=== PATIENT | male | born 1975 | race Caucasian/White ===

== ENCOUNTER 2017-12-07 11:27 | Inpatient (IN) | payer OTHER ==
--- NOTE | 2017-12-07 11:50 | ER Document Report ---
ED Fall <GEMMA MOREJON - Last Filed: 12/07/17 17:02> - General Mode of Arrival: Medic Information source: Patient TRAVEL OUTSIDE OF THE [place] IN LAST 30 DAYS: No - HPI Occurred: Just prior to arrival <LINDA ABREU - Last Filed: 12/08/17 18:15> - General Chief Complaint: Fall Injury Stated Complaint: FALL/LEFT ARM PAIN Time Seen by Provider: 12/07/17 11:45 Notes: Patient is a 42-year-old male with no significant medical history presents to the emergency department complaining of left upper arm pain secondary to fall. Patient states while he was at work, placing gutters on a ladder, he fell approximately 8-10 ft on his left arm on some stairs. He states the ladder slipped on wet wood from under him. Patient denies any other pain, head trauma or injury or loss of consciousness. EMS placed the patient's left arm in a splint. (LINDA ABREU) - Related data Allergies/Adverse Reactions: Sulfa (Sulfonamide Antibiotics) Allergy (Verified 12/07/17 15:28) Past Medical History - General Information source: Patient - Social History Smoking Status: Never Smoker Cigarette use (# per day): No Chew tobacco use (# tins/day): No Smoking Education Provided: No Frequency of alcohol use: None Family History: Reviewed & Not Pertinent Past Surgical History: Reports: Other - Corrective eye surgery as a child - Immunizations Hx Diphtheria, Pertussis, Tetanus Vaccination: Yes <LINDA ABREU - Last Filed: 12/08/17 18:15> Review of Systems - Review of Systems Constitutional: No symptoms reported EENT: No symptoms reported Cardiovascular: No symptoms reported Respiratory: No symptoms reported Gastrointestinal: No symptoms reported Genitourinary: No symptoms reported Male Genitourinary: No symptoms reported Musculoskeletal: See HPI Skin: No symptoms reported Hematologic/Lymphatic: No symptoms reported Neurological/Psychological: No symptoms reported -: Yes All other systems reviewed and negative <LINDA ABREU - Last Filed: 12/08/17 18:15> Physical Exam - General General appearance: Appears well, Alert In distress: None - HEENT Head: Normocephalic, Atraumatic Eyes: Normal Conjunctiva: Normal Extraocular movements intact: Yes Pupils: PERRL Neck: Normal - Respiratory Respiratory status: No respiratory distress - Cardiovascular Rhythm: Regular Heart sounds: Normal auscultation Murmur: No Friction rub: No Gallop: None auscultated - Abdominal Inspection: Normal Distension: No distension Bowel sounds: Normal Tenderness: Nontender Organomegaly: No organomegaly - Extremities General upper extremity: Nontender - nontender to the left shoulder, left forearm or left eblow. General lower extremity: Normal ROM Arm: Tender, Other - Placed in a splint by EMS, tender to palpation to the left mid humerous. Distal and proximal sensations intact. No lacerations or abrasions. Knee: Abrasion - Right medial knee - Neurological Neuro grossly intact: Yes Cognition: Normal Orientation: AAOx4 Emi Coma Scale Eye Opening: Spontaneous Emi Coma Scale Verbal: Oriented Emi Coma Scale Motor: Obeys Commands Emi Coma Scale Total: 15 Speech: Normal - Psychological Associated symptoms: Normal affect, Normal mood - Skin Skin Temperature: Warm Skin Moisture: Dry Skin Color: Normal <LINDA ABREU - Last Filed: 12/08/17 18:15> - Vital signs Vitals: Pulse Ox 94 12/07/17 11:30 Course - Laboratory Result Diagrams: 12/07/17 11:38 12/07/17 11:38 - Diagnostic Test Radiology reviewed: Image reviewed, Reports reviewed - Oblique fracture with some angulation distal left humerus. Chest x-ray is unremarkable. - EKG Interpretation by [place] EKG shows normal: [place], Intervals, ST-T Waves. abnormal: QRS Complexes - Borderline R-wave progression in the anterior leads Rate: Normal - 88 Rhythm: A.Fib When compared to previous EKG there are: Previous EKG unavailable - Consults Dr. Jimenez Time consulted: 13:00 Consulted provider: will come to ER - Have hospitalist admit and medically clear for surgery tomorrow Claudio Huston Time consulted: 13:20 Consulted provider: will come to ER <GEMMA MOREJON - Last Filed: 12/07/17 17:02> - Laboratory Result Diagrams: 12/08/17 05:35 12/08/17 05:35 <LINDA ABREU - Last Filed: 12/08/17 18:15> - Vital Signs Vital signs: Temp Pulse Resp BP Pulse Ox 97.6 F 72 18 119/71 97 12/08/17 17:45 12/08/17 17:45 12/08/17 17:45 12/08/17 17:45 12/08/17 17:45 - Laboratory Laboratory results interpreted by me: 12/07/17 12/07/17 12/07/17 11:38 11:38 11:38 MCHC 36.5 H D-Dimer Chloride 108 H Creatinine 1.39 H Est GFR (Non-Af Amer) 57 L Total Bilirubin 1.4 H TSH 6.72 H Free T4 12/07/17 12/07/17 11:38 11:38 MCHC D-Dimer 2.15 H Chloride Creatinine Est GFR (Non-Af Amer) Total Bilirubin TSH Free T4 0.73 L Critical Care Note - Critical Care Note Total time excluding time spent on procedures (mins): 35 <GEMMA MOREJON - Last Filed: 12/07/17 17:02> Discharge - Discharge Admitting Provider: Hospitalist Unit Admitted: IMCU <GEMMA MOREJON - Last Filed: 12/07/17 17:02> <LINDA ABREU - Last Filed: 12/08/17 18:15> - Discharge Clinical Impression: New onset atrial fibrillation Humerus distal fracture Qualifiers: Encounter type: initial encounter Fracture type: closed Fracture morphology: other fracture Fracture alignment: displaced Laterality: left Qualified Code(s) : S42.492A - Other displaced fracture of lower end of left humerus, initial encounter for closed fracture Fracture, radius, proximal Qualifiers: Encounter type: initial encounter Fracture type: closed Fracture morphology: unspecified fracture morphology Laterality: left Qualified Code(s): S52.102A - Unspecified fracture of upper end of left radius, initial encounter for closed fracture Condition: Good Disposition: ADMITTED INPATIENT Scribe Attestation: 12/07/17 13:25 I personally performed the services described in the documentation, reviewed and edited the documentation which was dictated to the scribe in my presence, and it accurately records my words and actions. (GEMMA MOREJON) Scribe Documentation - Scribe Written by Scribe:: Augie Stewart, 12/07/2017 12:02 acting as scribe for :: Tabitha <LINDA ABREU - Last Filed: 12/08/17 18:15>
[2017-12-07 12:22] LABS: ABSOLUTE EOSINOPHILS # (AUTO) 0.3 10^3/uL (0.0-0.6); ABSOLUTE LYMPHOCYTES (AUTO) 3.3 10^3/uL (0.5-4.7); ABSOLUTE MONOCYTES (AUTO) 0.5 10^3/uL (0.1-1.4); ABSOLUTE NEUT (AUTO) 4.1 10^3/uL (1.7-8.2); BASOPHILS % (AUTO) 0.4 % (0-2); EOSINOPHILS % (AUTO) 3.3 % (0-6); HEMOGLOBIN 15.8 g/dL (13.5-17.0); LYMPHOCYTES % (AUTO) 40.3 % (13-45); MEAN CORPUSCULAR HEMOGLOBIN 32.2 pg (27.0-33.4); MEAN CORPUSCULAR HGB CONC 36.5 g/dL (32.0-36.0); MEAN CORPUSCULAR VOLUME 88 fl (80-97); MONOCYTES % (AUTO) 5.9 % (3-13); PLATELET COUNT 231 10^3/uL (150-450); RED BLOOD COUNT 4.91 10^6/uL (4.35-5.55); RED CELL DISTRIBUTION WIDTH 13.2 % (11.5-14.0); SEGMENTED NEUTROPHILS % (AUTO) 50.1 % (42-78); TOTAL CELLS COUNTED % (AUTO) 100 %; WHITE BLOOD COUNT 8.1 10^3/uL (4.0-10.5)
[2017-12-07] MEDS ORDERED: FENTANYL CITRATE INJ/PF 100 MCG/2 ML AMPUL IV ONE ×4 (12:24→13:44)
--- NOTE | 2017-12-07 12:33 | RADIOLOGY REPORT (SQ) ---
EXAM DESCRIPTION: HUMERUS LEFT COMPLETED DATE/TIME: 12/07/2017 12:16 pm REASON FOR STUDY: Fell off ladder, humerus pain and deformity COMPARISON: None. NUMBER OF VIEWS: Two views. TECHNIQUE: Two radiographic images were acquired of the left humerus to include elbow and shoulder i n at least one projection. LIMITATIONS: None. FINDINGS: MINERALIZATION: Normal. BONES: An oblique fracture seen the distal 3rd of the humerus, with angulation of the distal portion. SOFT TISSUES: No metallic foreign bodies. OTHER: No other significant finding. IMPRESSION: Oblique fracture distal 3rd of the left humerus. TECHNICAL DOCUMENTATION: JOB ID: [id number] [employer]- All Rights Reserved Reading location - IP/workstation name: [email or web address]
--- NOTE | 2017-12-07 12:34 | RADIOLOGY REPORT (SQ) ---
EXAM DESCRIPTION: CHEST SINGLE VIEW COMPLETED DATE/TIME: 12/07/2017 12:16 pm REASON FOR STUDY: New-onset atrial fibrillation COMPARISON: None. EXAM PARAMETERS: NUMBER OF VIEWS: One view. TECHNIQUE: Single frontal radiographic view of the chest acquired. RADIATION DOSE: NA LIMITATIONS: None. FINDINGS: LUNGS AND PLEURA: No opacities, masses or pneumothorax. No pleural effusion. MEDIASTINUM AND HILAR STRUCTURES: No masses. Contour normal. HEART AND VASCULAR STRUCTURES: Heart normal in size. Normal vasculature. BONES: No acute findings. HARDWARE: None in the chest. OTHER: No other significant finding. IMPRESSION: NO ACUTE RADIOGRAPHIC FINDING IN THE CHEST. TECHNICAL DOCUMENTATION: JOB ID: [id number] [employer]- All Rights Reserved Reading location - IP/workstation name: [email or web address]
[2017-12-07 12:40] LABS: INTERNATIONAL RATION (INR) 0.96; PROTHROMBIN TIME 13.3 SEC (11.4-15.4)
[2017-12-07 12:45] LABS: ALANINE AMINOTRANSFERASE 61 U/L (21-72); ALBUMIN 4.1 g/dL (3.5-5.0); ALKALINE PHOSPHATASE 68 U/L (38-126); ANION GAP 11 (5-19); ASPARTATE AMINO TRANSFERASE 50 U/L (17-59); BILIRUBIN,DIRECT 0.3 mg/dL (0.0-0.4); BILIRUBIN,TOTAL 1.4 mg/dL (0.2-1.3); BLOOD UREA NITROGEN 15 mg/dL (7-20); CALCIUM 9.2 mg/dL (8.4-10.2); CARBON DIOXIDE 25 mmol/L (22-30); CHLORIDE 108 mmol/L (98-107); CREATINE KINASE 86 U/L (55-170); GLUCOSE 103 mg/dL (75-110); TOTAL PROTEIN 6.8 g/dL (6.3-8.2)
[2017-12-07 12:57] LABS: HEMATOCRIT 43.4 % (37.9-51.0)
[2017-12-07] MEDS ORDERED: NORMAL SALINE 1000 ML 1,000 ML IV PRN (13:29)
[2017-12-07] MEDS ORDERED: FENTANYL CITRATE INJ/PF 250 MCG/5 ML AMPULE IV ONE (13:39)
[2017-12-07] MEDS ORDERED: METOCLOPRAMIDE HCL INJ/PF 10 MG/2 ML SDV IV ONE (14:09)
--- NOTE | 2017-12-07 14:31 | RADIOLOGY REPORT (SQ) ---
EXAM DESCRIPTION: ELBOW LEFT AP/LATERAL COMPLETED DATE/TIME: 12/07/2017 2:16 pm REASON FOR STUDY: Preop, fractured distal humerus COMPARISON: None. NUMBER OF VIEWS: Two views. TECHNIQUE: AP, lateral radiographic images acquired of the left elbow. LIMITATIONS: None. FINDINGS: MINERALIZATION: Normal. BONES: Oblique comminuted displaced fracture distal humerus. Non-displaced hairline fracture of the proximal radius is also present. JOINT: No effusion. SOFT TISSUES: No soft tissue swelling. No foreign body. OTHER: No other significant finding. IMPRESSION: 1 Oblique comminuted displaced fracture distal humerus. 2 Non-displaced hairline fracture proximal radius. COMMENT: 1 The results of this examination were discussed with the emergency room provider on 018 at 14:23 hours. TECHNICAL DOCUMENTATION: JOB ID: [id number] [employer]- All Rights Reserved Reading location - IP/workstation name: [email or web address]
--- NOTE | 2017-12-07 15:38 | EKG REPORT ---
SEVERITY:- ABNORMAL ECG - ATRIAL FIBRILLATION, V-RATE 70-113 BORDERLINE R WAVE PROGRESSION, ANTERIOR LEADS : Confirmed by: Melania Edwards MD 07-Dec-2017 15:37:27
--- NOTE | 2017-12-07 15:38 | RADIOLOGY REPORT (SQ) ---
EXAM DESCRIPTION: CTA CHEST COMPLETED DATE/TIME: 12/07/2017 3:21 pm REASON FOR STUDY: New onset atrial fibrillation, elevated d-dimer COMPARISON: Chest x-ray 12/07/2017 TECHNIQUE: CT scan of the chest performed using helical scanning technique with dynamic intravenous contrast injection. Images reviewed with lung, soft tissue and bone windows. Reconstructed coronal and sagittal MPR images reviewed. Additional 3 dimensional post-processing performed to develop Maximal Intensity Projection images ([place] P). All images stored on PACS. All CT scanners at this facility use dose modulation, iterative reconstruction, and/or weight based d osing when appropriate to reduce radiation dose to as low as reasonably achievable (ALARA). [facility]: Dose Right [facility]: CareDose [facility]: Dose Right [facility]: Teradose 4D [facility]: VaxInnate CONTRAST TYPE AND DOSE: contrast/concentration: Isovue 370.00 mg/ml; Total Contrast Delivered: 84.0 ml; Total Saline Delivered: 90.0 ml Contrast bolus optimized for the pulmonary arteries. Not diagnostic for the aorta. RENAL FUNCTION: BUN 15 creatinine 1.39 RADIATION DOSE: CT Rad equipment meets quality standard of care and radiation dose reduction techniq ues were employed. CTDIvol: 34.2 - 49.6 mGy. DLP: 1304 mGy-cm. . LIMITATIONS: None. FINDINGS: LUNGS AND PLEURA: No masses, infiltrates, pneumothorax. No pleural effusions, calcificati ons. AORTA AND GREAT VESSELS: No aneurysm. Contrast bolus not optimized for the aorta. HEART: No pericardial effusion. No significant coronary artery calcifications. PULMONARY ARTERIES: No emboli visualized in the main pulmonary arteries or the segmental branches. HILAR AND MEDIASTINAL STRUCTURES: No identified masses or abnormal nodes. HARDWARE: None in the chest. UPPER ABDOMEN: No significant findings. Limited exam. THYROID AND OTHER SOFT TISSUES: No masses. No adenopathy. BONES: No acute or significant finding. 3D MIPS: Confirm above findings. OTHER: No other significant finding. IMPRESSION: NORMAL CTA OF THE CHEST. NO PULMONARY EMBOLI. COMMENT: Quality ID # [id number]: Final reports with documentation of one or more dose reduction techniques (e.g., Automated exposure control, adjustment of the mA and/or kV according to patient size, use of iterative reconstruction technique) TECHNICAL DOCUMENTATION: JOB ID: [id number] [employer]- All Rights Reserved Reading location - IP/workstation name: [email or web address]
[2017-12-07] MEDS ORDERED: DILTIAZEM HCL/D5W 125 MG/125 ML RTUINJ IV PRN (16:32)
[2017-12-07 16:59] LABS: FREE T3 4.12 pg/mL (2.77-5.27); FREE T4 (FREE THYROXINE) 0.73 ng/dL (0.78-2.19)
[2017-12-07] MEDS ORDERED: DILTIAZEM HCL INJ 25 MG/5 ML VIAL IV ONE (17:00)
[2017-12-07 17:18] LABS: URINE AMPHETAMINES SCREEN NEGATIVE; URINE BARBITURATES SCREEN NEGATIVE; URINE BENZODIAZEPINES SCREEN NEGATIVE; URINE COCAINE SCREEN NEGATIVE; URINE MARIJUANA (THC) SCREEN NEGATIVE; URINE METHADONE SCREEN NEGATIVE; URINE PHENCYCLIDINE SCREEN NEGATIVE
--- NOTE | 2017-12-07 17:39 | PDOC CONSULTATION ---
History of Present Illness Admission Date/PCP: 12/07/17 13:32 Patient complains of: Left arm injury History of Present Illness: JIMBO NICHOLSON is a 42 year old male who was at work and sustained a fall onto his left elbow approximately 8-10 feet. Patient denies head injury or loss of consciousness. Notes pain and swelling since the time of injury has improved with current pain regimen. Was placed in a splint in the emergency room. Pain 4/10. Denies numbness. Denies chest pain or shortness of breath. Past Medical History Psychiatric Medical History: Denies: Depression Past Surgical History Past Surgical History: Reports: Other - Corrective eye surgery as a child Social History Smoking Status: Never Smoker Frequency of Alcohol Use: Rare Hx Recreational Drug Use: No Hx Prescription Drug Abuse: No Family History Family History: Reviewed & Not Pertinent Parental Family History Reviewed: No Children Family History Reviewed: No Sibling(s) Family History Reviewed.: No Medication/Allergy Home Medications: No Home Medications 12/07/17 Allergies/Adverse Reactions: Sulfa (Sulfonamide Antibiotics) Allergy (Verified 12/07/17 15:28) Review of Systems Constitutional: ABSENT: chills, fever(s), headache(s), weight gain, weight loss Eyes: ABSENT: visual disturbances Ears: ABSENT: hearing changes Cardiovascular: ABSENT: chest pain, dyspnea on exertion, edema, orthropnea, palpitations Respiratory: ABSENT: cough, hemoptysis Gastrointestinal: ABSENT: abdominal pain, constipation, diarrhea, hematemesis, hematochezia, nausea, vomiting Genitourinary: ABSENT: dysuria, hematuria Integumentary: ABSENT: rash, wounds Neurological: ABSENT: abnormal gait, abnormal speech, confusion, dizziness, focal weakness, syncope Psychiatric: ABSENT: anxiety, depression, homidical ideation, suicidal ideation Endocrine: ABSENT: cold intolerance, heat intolerance, menstrual abnormalities, polydipsia, polyuria Hematologic/Lymphatic: ABSENT: easy bleeding, easy bruising, lymphadenopathy Physical Exam Vital Signs: Temp Pulse Resp BP Pulse Ox 97 F L 92 16 149/88 H 99 12/07/17 16:04 12/07/17 16:04 12/07/17 16:04 12/07/17 16:04 12/07/17 16:04 Intake & Output 12/06/17 12/07/17 12/08/17 06:59 06:59 06:59 Weight 126.8 kg General appearance: PRESENT: no acute distress, well-developed, well-nourished Head exam: PRESENT: atraumatic, normocephalic Eye exam: PRESENT: conjunctiva pink, EOMI, PERRLA. ABSENT: scleral icterus Ear exam: PRESENT: normal external ear exam Mouth exam: PRESENT: moist, tongue midline Neck exam: PRESENT: full ROM. ABSENT: carotid bruit, JVD, lymphadenopathy, thyromegaly Respiratory exam: PRESENT: unlabored Cardiovascular exam: PRESENT: irregular rhythm. ABSENT: diastolic murmur, rubs , systolic murmur Pulses: PRESENT: normal dorsalis pedis pul, +2 pedal pulses bilateral Vascular exam: PRESENT: normal capillary refill GI/Abdominal exam: PRESENT: normal bowel sounds, soft. ABSENT: distended, guarding, mass, organolmegaly, rebound, tenderness Rectal exam: PRESENT: deferred Musculoskeletal exam: PRESENT: other - Left upper extremity: Deformity noted along the distal humerus tenderness to palpation. No manipulation performed. Patient has weakness with EPL and digital extension. Hypoesthesias dorsally along the hand. Intact sensation sharp versus light touch throughout median ulnar nerve distribution. Patient able to make full composite fist. Compartments soft and compressible no sign of compartment syndrome. Dorsalis pedis pulse 2+. Neurological exam: PRESENT: alert, awake, oriented to person, oriented to place , oriented to time, oriented to situation, CN II-XII grossly intact. ABSENT: motor sensory deficit Psychiatric exam: PRESENT: appropriate affect, normal mood. ABSENT: homicidal ideation, suicidal ideation Skin exam: PRESENT: dry, intact, warm. ABSENT: cyanosis, rash Results Impressions: Chest X-Ray 12/07/17 11:51 IMPRESSION: NO ACUTE RADIOGRAPHIC FINDING IN THE CHEST. Humerus X-Ray 12/07/17 11:51 IMPRESSION: Oblique fracture distal 3rd of the left humerus. Elbow X-Ray 12/07/17 13:18 IMPRESSION: 1 Oblique comminuted displaced fracture distal humerus. 2 Non-displaced hairline fracture proximal radius. Chest/Abdomen CTA 12/07/17 14:27 IMPRESSION: NORMAL CTA OF THE CHEST. NO PULMONARY EMBOLI. Status: Image reviewed by me - I have reviewed patient's radiographs which demonstrate extra-articular comminuted distal third humerus fracture Assessment & Plan - Diagnosis (1) Closed fracture of left distal humerus Qualifiers: Encounter type: initial encounter Fracture alignment: displaced Is this a current diagnosis for this admission?: Yes Plan: Patient's radiographs demonstrate distal third humerus fracture. Patient was placed in a posterior splint given the amount of displacement of patient's age I recommended operative intervention however he currently is in new onset A. fib and requires cardiology clearance if patient is cleared by cardiology plan will be to proceed with operative intervention which includes ORIF left distal humerus. We discussed risk and benefits of the surgery specific risks including neurovascular injury of the radial nerve given the location of patient 's fracture andthe likelihood that the radial nerve is in this vicinity and could also be impinged within the fracture site. Patient understands these risks and benefits of the operative intervention also discussed prognosis, rehabilitation and healing expectations. Once patient is medically cleared will proceed with operative intervention.
[2017-12-07] MEDS: ENOXAPARIN SODIUM INJ 150 MG/1 ML DISP.SYRIN SUBCUT SCH (17:55)
[2017-12-07] MEDS: OXYCODONE-ACETAMINOPHEN 5-325 MG TABLET PO PRN (17:57)
[2017-12-07 18:02] LABS: APPEARANCE,URINE CLEAR; BILIRUBIN,URINE NEGATIVE (NEGATIVE); COLOR,URINE YELLOW; GLUCOSE, URINE NEGATIVE (NEGATIVE); KETONES,URINE NEGATIVE (NEGATIVE); LEUKOCYTE ESTERASE,URINE NEGATIVE (NEGATIVE); NITRITE,URINE NEGATIVE (NEGATIVE); PROTEIN,URINE NEGATIVE (NEGATIVE); URINE SPECIFIC GRAVITY 1.028
--- NOTE | 2017-12-07 19:45 | PDOC CONSULTATION ---
Consultation Consult Date: 12/07/17 Attending physician:: CHELSEA CASTELAN Consult reason:: Atrial fibrillation History of Present Illness Admission Date/PCP: 12/07/17 13:32 Patient complains of: Left arm discomfort after a fall History of Present Illness: JIMBO NICHOLSON is a 42 year old male who was at work and sustained a fall onto his left elbow approximately 8-10 feet. Patient denies head injury or loss of consciousness. Notes pain and swelling since the time of injury has improved with current pain regimen. Was placed in a splint in the emergency room. Pain 4/10. Denies numbness. Denies chest pain or shortness of breath. This history obtained by the orthopedic surgeon was reviewed and confirmed. Patient claims that he has been very healthy. He however denied seeing any physician over the last several years. Patient does donate plasma on a regular basis almost every 2 weeks. He claims that his blood pressure has been normal. During his last plasma donation, the personnel who takes the blood, mentioned that his pulse felt irregular. Patient however ignored that. Patient does have history of loud snoring but denies any problem with sleep. Patient however tends to sleep on his stomach. He denied any history of diabetes, hypertension or any other significant heart problems. He also denied any family history of premature coronary artery disease or sudden cardiac in the immediate family members. Past Medical History Psychiatric Medical History: Denies: Depression Past Surgical History Past Surgical History: Reports: Other - Corrective eye surgery as a child Social History Information Source: Patient Smoking Status: Never Smoker Frequency of Alcohol Use: Rare Hx Recreational Drug Use: No Hx Prescription Drug Abuse: No - Advance Directive Resuscitation Status: Full Code Surrogate healthcare decision maker:: Patient's is the surrogate decision-maker Family History Family History: Reviewed & Not Pertinent Parental Family History Reviewed: Yes Children Family History Reviewed: Yes Sibling(s) Family History Reviewed.: Yes Medication/Allergy Home Medications: No Home Medications 12/07/17 Allergies/Adverse Reactions: Sulfa (Sulfonamide Antibiotics) Allergy (Verified 12/07/17 15:28) Review of Systems Review of Systems: Please see history of present illness and past medical history as wall. Constitutional: No fever or chills reported. Head : No recent chronic headaches, recent head injury. Eyes: No recent eye pain, diplopia, redness, discharge, acute visual changes. Ears: No recent chronic ear pain, acute hearing loss, ear discharge. Oral cavity: No recent ulcerations, bleeding, oral cavity discomfort. Neck: No recent acute neck pain reported. Hematologic: No recent easy bruising or bleeding. Lymphatic: No recent lymph node enlargement reported. Cardiovascular system review: See history of present illness. Respiratory system review: No hemoptysis or blood clots in the lungs reported. Mild Shortness of breath on exertion Gastrointestinal system review: Negative for any recent acute hematemesis, melena. Genitourinary system review: No recent acute or chronic hematuria, flank pain, UTI etc. reported. Skin system review: Negative for any recent abnormal bruising, no rash, no pruritus reported. Neurologic: No prior history of strokes, mini strokes, seizure disorder. Psychologic: No history of major psychosis or major depression reported. Musculoskeletal: Minor aches and pains reported. No acute joint swelling reported. Endocrine: No recent polyuria, polydipsia, recent heat or cold intolerance. Physical Exam Vital Signs: Temp Pulse Resp BP Pulse Ox 97 F L 92 16 149/88 H 99 12/07/17 16:04 12/07/17 16:04 12/07/17 16:04 12/07/17 16:04 12/07/17 16:04 Intake & Output 12/06/17 12/07/17 12/08/17 06:59 06:59 06:59 Intake Total 4 Output Total 750 Balance -746 Weight 126.8 kg Exam: GENERAL: well-nourished and in no acute distress. Alert and oriented x3 HEAD: Atraumatic, normocephalic. EYES: Pupils equal round and reactive to light, extraocular movements intact, sclera anicteric, conjunctiva are normal. ENT: TMs normal, nares patent, oropharynx clear without exudates. Moist mucous membranes. No oral ulcerations or bleeding gums noted NECK: supple without lymphadenopathy. Trachea is central. No cervical or axillary lymphadenopathy noted. Carotids are 2+, JVD WNL LUNGS: Respiration seems nonlabored, no significant accessory muscle action noted. Breath sounds clear to auscultation bilaterally and equal noted. No wheezes rales or rhonchi noted. No significant dullness noted on percussion. CHEST: Palpation of the chest wall shows no significant chest wall tenderness. HEART: [place] [employer], No PSH, 1/6 JUANY aortic area, 1/6 tom systolic murmur mitral area, no rubs, no gallops. ABDOMEN: Soft, no significant tenderness appreciated, normoactive bowel sounds. No guarding, no rebound. No rigidity noted . No masses appreciated. EXTREMITIES: Pedal pulses are 1-2+, no calf tenderness noted. No clubbing or cyanosis. negative pedal edema noted NEUROLOGICAL: Focused neurological exam showed no significant neurologic deficit. Normal speech, no focal weakness appreciated. PSYCH: Normal mood, normal affect. Judgment and insight within normal limits. SKIN: No significant ecchymosis, skin is noted to be warm. MUSCULOSKELETAL EXAM: No significant acute joint swelling noted. Left arm in cast and bandaged. Results Laboratory Results: 12/07/17 16:35 Urine Color YELLOW Urine Appearance CLEAR Urine pH 6.0 Ur Specific [place] 1.028 Urine Protein NEGATIVE Urine Glucose (UA) NEGATIVE Urine Ketones NEGATIVE Urine Blood NEGATIVE Urine Nitrite NEGATIVE Ur Leukocyte Esterase NEGATIVE Urine WBC (Auto) 11 Urine RBC (Auto) 1 EKG Comments: Twelve-lead EKG shows atrial fibrillation with controlled ventricular response, no acute ST-T wave changes are noted. Impressions: Chest X-Ray 12/07/17 11:51 IMPRESSION: NO ACUTE RADIOGRAPHIC FINDING IN THE CHEST. Humerus X-Ray 12/07/17 11:51 IMPRESSION: Oblique fracture distal 3rd of the left humerus. Elbow X-Ray 12/07/17 13:18 IMPRESSION: 1 Oblique comminuted displaced fracture distal humerus. 2 Non-displaced hairline fracture proximal radius. Chest/Abdomen CTA 12/07/17 14:27 IMPRESSION: NORMAL CTA OF THE CHEST. NO PULMONARY EMBOLI. Assessment & Plan - Diagnosis (1) New onset atrial fibrillation Is this a current diagnosis for this admission?: Yes (2) Closed fracture of left distal humerus Qualifiers: Encounter type: initial encounter Fracture alignment: displaced Is this a current diagnosis for this admission?: Yes (3) Obesity Qualifiers: Obesity type: unspecified obesity type Obesity classification: unspecified obesity classification Is this a current diagnosis for this admission?: Yes (4) Sleep disorder breathing Is this a current diagnosis for this admission?: Yes (5) Preoperative cardiovascular examination Is this a current diagnosis for this admission?: Yes - Notes Notes: New onset atrial fibrillation: Patient was noted to have irregular heartbeat at his last plasma donation. Exact onset is not clear. Patient chads score however is low therefore chronic anticoagulation not indicated today but will obtain a 2D echo tomorrow morning. So far her EKGs did not show any acute ST-T wave changes. Closed fracture of left distal humerus: Patient for corrective surgery tomorrow. I believe he will be able to tolerate surgery. Sleep disordered breathing: Patient has history of loud snoring. Since he also has obesity and now atrial fibrillation, there is high probability he may have this. Patient was encouraged to be tested for this condition. Obesity: Patient has been encouraged in gradual weight loss. Discussed association of obesity with sleep apnea syndrome. Also obesity is linked to atrial fibrillation. Preoperative cardiovascular examination: My feeling is that she should be able to tolerate the forthcoming orthopedic surgery. Therefore he is cleared. Have placed patient on metoprolol succinate 25 mg p.o. twice daily. Have also asked nurses not to give him morning dose of Lovenox. I believe he could be taken to surgery tomorrow after the echocardiogram has been performed. - Time Time Spent: 30 to 50 Minutes - CODE STATUS was discussed, patient remains full code. Surrogate decision-maker patient's . Multiple medical problems were addressed. More than 50% of the time spent coordinating care, discussing management plans with involved caregivers. Management plans discussed with involved personnels. Medical decision making was of moderate to high complexity , patient's has multiple comorbidities. Medications reviewed and adjusted accordingly: Yes
--- NOTE | 2017-12-07 22:16 | EKG REPORT ---
SEVERITY:- ABNORMAL ECG - ATRIAL FIBRILLATION, V-RATE 89-152 BORDERLINE R WAVE PROGRESSION, ANTERIOR LEADS BORDERLINE T ABNORMALITIES, INFERIOR LEADS BORDERLINE PROLONGED QT INTERVAL : Confirmed by: José Miguel Bosch 07-Dec-2017 22:15:04
[2017-12-07] MEDS ORDERED: METOPROLOL SUCCINATE 25 MG TAB.SR.24H PO ONE (22:30)
[2017-12-07] MEDS ORDERED: DEXTROSE 40% GEL 15 GM TUBE PO PRN ×2 (22:39)
[2017-12-07] MEDS ORDERED: DEXTROSE 50%-WATER 25 GM/50 ML DISP.SYRIN IV PRN ×2 (22:39)
[2017-12-07] MEDS ORDERED: GLUCAGON,HUMAN RECOMB 1 MG INJ SUBCUT PRN (22:39)
[2017-12-08] MEDS: OXYCODONE-ACETAMINOPHEN 5-325 MG TABLET PO PRN ×2 (00:48→10:05)
--- NOTE | 2017-12-08 03:55 | HISTORY AND PHYSICAL E ---
History and Physical NAME: JIMBO NICHOLSON : 1975 AGE: 42Y ADMITTED: 12/07/2017 ROOM: 331 CODE STATUS: Full code. PRIMARY CARE PROVIDER: Not established. CHIEF COMPLAINT: Fall. HISTORY OF PRESENT ILLNESS: The patient is a 42-year-old male with a past medical history of obesity and at one time hypothyroidism. The patient presented to the Emergency Department after sustaining a fall. According to history, the patient was placing gutters when he fell approximately 8-10 feet on his left arm on some stairs. The patient said that the ladder that he was on slipped on wet wood out from under him. The patient denied any pain. No head trauma. No loss of consciousness. EMS placed the patient's left arm in a splint and brought him to the Emergency Department for evaluation. Upon presentation to the Emergency Department, the patient was seen and evaluated by ER providers and was referred to Dr. Jimenez with orthopedics. The patient was slated to go to the OR; however, the patient was noted to be in atrial fibrillation, which was a completely new finding for this patient with no known risk factors. The patient denied any heart palpitations. No flutters. The patient does not smoke nor has the patient had any chest pain or shortness of breath. Upon my evaluation of the patient, he denies any symptoms as such. Denied any loss of consciousness, just simply slipped and fell. The patient's pain is reasonably controlled at this point. I did obtain a D-dimer and findings were elevated at 2.5, and stat CTA of the chest was negative for embolic etiology. The patient remained fairly rate controlled; however, with movement the patient's heart rate did become uncontrolled in the 130s to 140s. The patient was given a dose of IV Cardizem and his rate did improve to the 80s. The patient does have a good amount of blood pressure to work with and will be admitted to [facility]. PAST MEDICAL HISTORY: Remarkable for: 1. Obesity. 2. Previous diagnosis of hypothyroidism, but has never taken medications. PAST SURGICAL HISTORY: Does include corrective eye surgery as a child. ALLERGIES: Include SULFA. MEDICATIONS: None. PAST SOCIAL HISTORY: The patient is retired from the [employer]. 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 The patient resides with his girlfriend, Milli, who can be reached at [phone]. The patient denies any history of tobacco use ever. No history of alcohol or illicit drug use. FAMILY MEDICAL HISTORY: The patient's father is alive with known coronary artery disease and AFib. Onset was in his 60s though. The patient's mother is alive, who has had an unknown type of stroke in the past as well as an VT. The patient does have a sister who has migraines. The patient does have 2 children, both of which are healthy. REVIEW OF SYSTEMS: CONSTITUTIONAL: The patient denies any fevers, chills, dizziness, or weakness. No loss of consciousness. SKIN: The patient denies any diaphoresis, rashes, bruising, itching. HEENT: The patient denies any vision changes, hearing loss. No nasal drainage, sore throat. CARDIOVASCULAR: Denies any chest pain, heart palpitations, or peripheral edema. CHEST: The patient denies any shortness of breath. No cough, sputum production, or hemoptysis. GENITOURINARY: Denies any hematuria, pyuria, or dysuria. MUSCULOSKELETAL: Denies any chronic joint pains, but now has acute left arm pain due to fracture. ABDOMEN: Denies any nausea, vomiting, diarrhea, bloody hematemesis, constipation, melena. No hematochezia. NEUROLOGICAL: No seizures, tremors, loss of consciousness. HEMATOLOGICAL: Denies any irma bleeding, easy bruising. ENDOCRINE: Denies any recent weight changes. PSYCHIATRIC: No suicidal or homicidal ideation. The rest of the review of the other organ systems is negative. PHYSICAL EXAMINATION: GENERAL: The patient is a well-developed, obese, 42-year-old male who is awake, alert. He is oriented to person, place, time, and situation. He is verbal, conversational, does not appear to be in any acute distress. VITAL SIGNS: As follows: Temperature is 97.0, pulse 92, respirations 16, blood pressure is 149/88, oxygen saturation is 99% on room air. SKIN: Warm and dry. No rashes. Not diaphoretic. HEENT: Pupils equal, round, and reactive to light and accommodation. Conjunctiva is pink. Sclera is anicteric. No mouth lesions. Tongue is midline. NECK: Supple. No JVD. No palpable lymphadenopathy or thyromegaly. CARDIOVASCULAR: Heart is irregularly irregular. No rub. CHEST: Clear, symmetrical, unlabored. ABDOMEN: Soft, nontender, nondistended. Bowel sounds are present. BACK: No CVA tenderness, sacral edema. EXTREMITIES: No clubbing, cyanosis, edema, or peripheral signs of embolization. Pedal pulses +1 noted bilaterally. The patient's left arm is splinted from shoulder to fingers. PSYCHIATRIC: Denies suicidal/homicidal ideation. DIAGNOSTICS: Lab values are as follows: Hematology obtained on 12/07/2017: WBCs are 8.1, hemoglobin 15.8, hematocrit 43.4, platelet count is 231,000. Coagulation obtained on 12/07/2017: PT is 13.3, INR is 0.96. D-dimer is 2.15. Chemistry obtained on 12/07/2017: Sodium is 144, potassium 4.0, chloride is 108, carbon dioxide 25, BUN 15, creatinine is 1.39, glucose 103, calcium is 9.2, bilirubin is 1.4, AST 50, ALT is 51, alk phos 58, CK 80, protein is 6.8, albumin 4.1. TSH is 6.72. IMPRESSION AND PLAN: 1. Atrial fibrillation with rapid ventricular response. Uncertain of the exact etiology of this. The patient is completely asymptomatic. Given this, I do have quite concern. The patient did not convert with the dose of Cardizem, but will add drip to start if the patient's heart rate sustains greater than 110. Additionally, will fully anticoagulate the patient with Lovenox for now. Consult Cardiology. Will additionally add T3, T4, and supplement thyroid if needed. 2. Acute kidney injury. The patient's creatinine is slightly elevated at 1.39. Have given the patient a liter of fluid, especially since he has had a CTA now. Will repeat chemistries in the a.m. and follow. 3. Hypertension. The patient denies any history of hypertension and this very well may be a pain response. Will leave some blood pressure to work with given the patient's AFib, but try to keep systolic less than 170. 4. Closed fracture of the left distal humerus. Management as per Orthopedics. Surgery will be deferred at this time given the patient's atrial fibrillation. DISPOSITION: The patient is a full code. Pending patient's symptomatology and diagnostic findings, will reevaluate in the a.m. We will admit the patient to inpatient IMCU. The patient's expected length of stay should surpass 2 midnights. TIME SPENT: Time spent on this admission including assessment, plan, physical examination, patient education, review of records, and family meeting is 50 minutes. DICTATING PHYSICIAN: CHELSEA CASTELAN NP [id number] PHY#: [id number] ID: [id number] JOB#: [id number] ACCT: [id number] cc:CHELSEA CASTELAN NP >
[2017-12-08 06:12] LABS: HEMATOCRIT 38.8 % (37.9-51.0); HEMOGLOBIN 14.2 g/dL (13.5-17.0); MEAN CORPUSCULAR HEMOGLOBIN 32.4 pg (27.0-33.4); MEAN CORPUSCULAR HGB CONC 36.6 g/dL (32.0-36.0); MEAN CORPUSCULAR VOLUME 88 fl (80-97); PLATELET COUNT 213 10^3/uL (150-450); RED BLOOD COUNT 4.39 10^6/uL (4.35-5.55); RED CELL DISTRIBUTION WIDTH 13.4 % (11.5-14.0); WHITE BLOOD COUNT 9.2 10^3/uL (4.0-10.5)
[2017-12-08 06:39] LABS: ANION GAP 11 (5-19); BLOOD UREA NITROGEN 18 mg/dL (7-20); CALCIUM 8.7 mg/dL (8.4-10.2); CARBON DIOXIDE 26 mmol/L (22-30); CHLORIDE 107 mmol/L (98-107); GLUCOSE 105 mg/dL (75-110); POTASSIUM 4.1 mmol/L (3.6-5.0); SODIUM 143.7 mmol/L (137-145)
[2017-12-08] MEDS: KETOROLAC TROMETHAMINE INJ/PF 30 MG/1 ML SDV IV PRN (07:26)
--- NOTE | 2017-12-08 08:41 | EKG REPORT ---
SEVERITY:- ABNORMAL ECG - ATRIAL FIBRILLATION, V-RATE 68-82 : Confirmed by: José Miguel Bosch 08-Dec-2017 08:41:26
[2017-12-08] MEDS: METOPROLOL SUCCINATE 25 MG TAB.SR.24H PO SCH ×2 (10:05→21:12)
[2017-12-08] MEDS ORDERED: CEFAZOLIN INJ 1 GM VIAL ONE (11:39)
--- NOTE | 2017-12-08 11:46 | PDOC PROGRESS REPORT ---
Subjective Progress Note for:: 12/08/17 Subjective:: Patient seems to be doing better. Pt is denying any chest arm or neck discomfort. Patient denying any PND, orthopnea. Patient denied any sustained palpitations, dizziness, syncope, near syncope. Patient denying any fever chills. Patient denying any other significant discomfort. Patient is maintaining atrial fibrillation. Heart rate is well controlled Review of systems: Rest review of systems negative. Medications: Medications have been reviewed. Reason For Visit: AFIB,HUMEROUS FX Physical Exam Vital Signs: Temp Pulse Resp BP Pulse Ox 98.2 F 83 19 126/74 H 98 12/08/17 03:10 12/08/17 06:55 12/08/17 03:10 12/08/17 03:10 12/08/17 03:10 Intake & Output 12/07/17 12/08/17 12/09/17 06:59 06:59 06:59 Intake Total 804 Output Total 1500 Balance -696 Weight 127.4 kg Exam: GENERAL: well-nourished and in no acute distress. Alert and oriented x3 HEAD: Atraumatic, normocephalic. EYES: Pupils equal round and reactive to light, extraocular movements intact, sclera anicteric, conjunctiva are normal. ENT: TMs normal, nares patent, oropharynx clear without exudates. Moist mucous membranes. No oral ulcerations or bleeding gums noted NECK: supple without lymphadenopathy. Trachea is central. No cervical or axillary lymphadenopathy noted. Carotids are 2+, JVD WNL LUNGS: Respiration seems nonlabored, no significant accessory muscle action noted. Breath sounds clear to auscultation bilaterally and equal noted. No wheezes rales or rhonchi noted. No significant dullness noted on percussion. CHEST: Palpation of the chest wall shows no significant chest wall tenderness. HEART: [place] [employer], No PSH, 1/6 JUANY aortic area, 1/6 tom systolic murmur mitral area, no rubs, no gallops. ABDOMEN: Soft, no significant tenderness appreciated, normoactive bowel sounds. No guarding, no rebound. No rigidity noted . No masses appreciated. EXTREMITIES: Pedal pulses are 1-2+, no calf tenderness noted. No clubbing or cyanosis. negative pedal edema noted NEUROLOGICAL: Focused neurological exam showed no significant neurologic deficit. Normal speech, no focal weakness appreciated. PSYCH: Normal mood, normal affect. Judgment and insight within normal limits. SKIN: No significant ecchymosis, skin is noted to be warm. MUSCULOSKELETAL EXAM: No significant acute joint swelling noted. Left arm noted in cast. Patient has distal humerus fracture Results Laboratory Results: 12/08/17 05:35 12/08/17 05:35 12/07/17 12/08/17 12/08/17 16:35 05:35 05:35 WBC 9.2 RBC 4.39 Hgb 14.2 Hct 38.8 MCV 88 MCH 32.4 MCHC 36.6 H RDW 13.4 Plt Count 213 Sodium 143.7 Potassium 4.1 Chloride 107 Carbon Dioxide 26 Anion Gap 11 BUN 18 Creatinine 1.21 Est GFR ( Amer) > 60 Est GFR (Non-Af Amer) > 60 Glucose 105 Calcium 8.7 Magnesium 2.1 Urine Color YELLOW Urine Appearance CLEAR Urine pH 6.0 Ur Specific [place] 1.028 Urine Protein NEGATIVE Urine Glucose (UA) NEGATIVE Urine Ketones NEGATIVE Urine Blood NEGATIVE Urine Nitrite NEGATIVE Ur Leukocyte Esterase NEGATIVE Urine WBC (Auto) 11 Urine RBC (Auto) 1 EKG Comments: Atrial fibrillation with controlled ventricular response. No acute ST-T wave changes are noted. Impressions: Chest X-Ray 12/07/17 11:51 IMPRESSION: NO ACUTE RADIOGRAPHIC FINDING IN THE CHEST. Humerus X-Ray 12/07/17 11:51 IMPRESSION: Oblique fracture distal 3rd of the left humerus. Elbow X-Ray 12/07/17 13:18 IMPRESSION: 1 Oblique comminuted displaced fracture distal humerus. 2 Non-displaced hairline fracture proximal radius. Chest/Abdomen CTA 12/07/17 14:27 IMPRESSION: NORMAL CTA OF THE CHEST. NO PULMONARY EMBOLI. Assessment & Plan - Diagnosis (1) New onset atrial fibrillation Is this a current diagnosis for this admission?: Yes (2) Closed fracture of left distal humerus Qualifiers: Encounter type: initial encounter Fracture alignment: displaced Is this a current diagnosis for this admission?: Yes (3) Obesity Qualifiers: Obesity type: unspecified obesity type Obesity classification: unspecified obesity classification Is this a current diagnosis for this admission?: Yes (4) Sleep disorder breathing Is this a current diagnosis for this admission?: Yes (5) Preoperative cardiovascular examination Is this a current diagnosis for this admission?: Yes - Notes Notes: Atrial fibrillation: 2D echo shows normal LVEF. No significant stenotic or regurgitant lesions noted. Patient cleared for surgery. Once he recovered from this acute problem, will recommend EP consultation as an outpatient for ablation/antiarrhythmic therapy/cardioversion. At this point do not feel he needs chronic anticoagulation because of [id number] being 0. And risk benefits do not favor chronic anticoagulation. Fracture left distal humerus: Patient being managed by orthopedics. Sleep disordered breathing: Patient will benefit from a sleep study which can be arranged as an outpatient through my office. Obesity: Patient has been encouraged in weight loss. Preop cardiovascular examination: Patient cleared for surgery from cardiac standpoint. Recommend DVT prophylaxis, good pain control, pulmonary toilet etc. - Time Time with patient: 15-25 minutes - CODE STATUS was discussed, patient remains full code. Surrogate decision-maker unchanged. Multiple medical problems were addressed. More than 50% of the time spent coordinating care, discussing management plans with involved caregivers. Management plans discussed with involved personnels. Medical decision making was of moderate to high complexity , patient's has multiple comorbidities. Medications reviewed and adjusted accordingly: Yes
--- NOTE | 2017-12-08 12:33 | XCELERA REPORT ---
[address] [address] Transthoracic Echocardiogram Report Name: JIMBO NICHOLSON Age: 42 yrs Gender: Male : 1975 Patient Status: Inpatient Patient Location: [address] [place] [address] Study Date: 12/08/2017 10:42 AM Procedure: A complete two-dimensional transthoracic echocardiogram was performed (2D, M-mode, spectral and color flow Doppler). The study was technically adequate with some images being suboptimal in quality. Reason For Study: Preop, atrial fibrillation Ordering Physician: JOSÉ MIGUEL OSORIO Performed By: Katiuska Wills Interpretation Summary Left ventricular systolic function is low normal. There is borderline concentric left ventricular hypertrophy. The left ventricle is grossly normal size. LV diastolic function could not be adequately assessed. Wall motion cannot be accurately commented on, but no definite regional wall motion abnormalities noted. The right ventricular systolic function is normal. Borderline right ventricular enlargement. The right atrium is normal in size Borderline left atrial enlargement. There is no mitral valve stenosis. There is a trace amount of mitral regurgitation No aortic regurgitation is present. There is no aortic valve stenosis There is a trace or physiologic amount of tricuspid regurgitation Tricuspid regurgitation jet envelope not well defined to measure RV systolic pressure accurately. The aortic root is not well visualized but is probably normal size. The inferior vena cava was not visualized There is no pericardial effusion. MMode/2D Measurements & Calculations RVDd: 4.0 cm LVIDd: 5.2 cm FS: 31.6 % LVOT diam: 2.2 cm IVSd: 1.1 cm LVIDs: 3.5 cm EDV(Teich): 127.7 ml LVOT area: 3.8 cm2 LVPWd: 1.2 cm ESV(Teich): 52.1 ml EF(Teich): 59.2 % Doppler Measurements & Calculations MV E max jarod: MV dec slope: Ao V2 max: LV V1 max P.2 cm/sec 370.7 cm/sec2 80.4 cm/sec 1.7 mmHg MV A max jarod: MV dec time: Ao max PG: LV V1 max: 23.6 cm/sec 0.21 sec 2.6 mmHg 64.5 cm/sec MV E/A: 3.4 DARIAN(V,D): 3.0 cm2 PA V2 max: PI max jarod: TR max jarod: 72.2 cm/sec 191.4 cm/sec 234.0 cm/sec PA max PG: PI max P.7 mmHgTR max P.1 mmHg PI dec slope: 21.9 mmHg 106.6 cm/sec2 Left Ventricle The left ventricle is grossly normal size. There is borderline concentric left ventricular hypertrophy. Left ventricular systolic function is low normal. LV diastolic function could not be adequately assessed. Wall motion cannot be accurately commented on, but no definite regional wall motion abnormalities noted. Right Ventricle Borderline right ventricular enlargement. There is normal right ventricular wall thickness. The right ventricular systolic function is normal. Atria The right atrium is normal in size. Borderline left atrial enlargement. Interarterial septum not well visualized and not well dopplered. Cannot comment on ASD/PFO presence. Mitral Valve The mitral valve is grossly normal. There is no mitral valve stenosis. There is a trace amount of mitral regurgitation. Aortic Valve The aortic valve is grossly normal. There is no aortic valve stenosis. No aortic regurgitation is present. Tricuspid Valve The tricuspid valve is not well visualized, but is grossly normal. There is no tricuspid stenosis. There is a trace or physiologic amount of tricuspid regurgitation. Tricuspid regurgitation jet envelope not well defined to measure RV systolic pressure accurately. Pulmonic Valve The pulmonic valve is not well visualized. Great Vessels The aortic root is not well visualized but is probably normal size. The inferior vena cava was not visualized. Effusions There is no pericardial effusion. : JOSÉ MIGUEL OSORIO > José Miguel Osorio
[2017-12-08] MEDS ORDERED: FENTANYL CITRATE INJ/PF 100 MCG/2 ML AMPUL ONE (13:02)
[2017-12-08] MEDS ORDERED: KETOROLAC TROMETHAMINE 60 MG/2 ML SDV ONE (13:02)
[2017-12-08] MEDS ORDERED: PROPOFOL INJ 200 MG/20 ML VIAL IV ONE (13:03)
[2017-12-08] MEDS ORDERED: ACETAMINOPHEN 1,000 MG/100 ML RTUPB IV ONE (13:03)
[2017-12-08] MEDS ORDERED: DEXAMETHASONE SOD PHOSPHATE INJ 4 MG/1 ML VIAL ONE (13:03)
[2017-12-08] MEDS ORDERED: MIDAZOLAM 2 MG/2 ML INJ ONE (13:03)
[2017-12-08] MEDS ORDERED: ONDANSETRON HCL INJ/PF 4 MG/2 ML SDV ONE (13:04)
[2017-12-08] MEDS ORDERED: ROCURONIUM BROMIDE INJ 50 MG/5 ML VIAL IV ONE (13:39)
[2017-12-08] MEDS ORDERED: SUCCINYLCHOLINE CHLORIDE INJ 200 MG/10 ML VIAL ONE (13:39)
[2017-12-08] MEDS ORDERED: FENTANYL CITRATE INJ/PF 100 MCG/2 ML AMPUL IV PRN ×3 (14:31)
[2017-12-08] MEDS ORDERED: PROMETHAZINE HCL INJ 25 MG/1 ML VIAL IV PRN ×3 (14:31→18:16)
[2017-12-08] MEDS ORDERED: DIPHENHYDRAMINE HCL 50 MG/ML VIAL IV PRN (14:31)
[2017-12-08] MEDS ORDERED: OXYCODONE-ACETAMINOPHEN 5-325 MG TABLET PO PRN ×2 (14:31)
[2017-12-08] MEDS ORDERED: MEPERIDINE HCL/PF INJ 25 MG/1 ML DISP.SYRIN IV PRN (14:31)
[2017-12-08] MEDS ORDERED: MORPHINE SULFATE 10 MG/ML INJ IV PRN (14:31)
[2017-12-08] MEDS ORDERED: BUPIVACAINE HCL 0.5 % INJ/PF 30 ML SDV ONE (15:18)
--- NOTE | 2017-12-08 15:32 | PDOC PROGRESS REPORT ---
Subjective Progress Note for:: 12/08/17 Subjective:: Patient is seen resting in bed. He is awake, alert and oriented 3. He is preparing to go to the OR shortly for repair of his left humerus fracture with Dr. Jimenez. He denies any chest pain, shortness of breath or dyspnea. He denies any nausea, vomiting or abdominal pain. He denies any fevers or chills. He denies any other arthralgias or myalgias other than the left shoulder pain. Remaining review of systems are negative. His is at bedside all her questions were answered as well. Reason For Visit: AFIB,HUMEROUS FX Physical Exam Vital Signs: Temp Pulse Resp BP Pulse Ox 98.7 F 67 18 144/98 H 97 12/08/17 07:41 12/08/17 07:41 12/08/17 07:41 12/08/17 07:41 12/08/17 07:41 Intake & Output 12/07/17 12/08/17 12/09/17 06:59 06:59 06:59 Intake Total 804 0 Output Total 1500 750 Balance -696 -750 Weight 127.4 kg 127.4 kg General appearance: PRESENT: no acute distress, obese, well-developed, well- nourished Head exam: PRESENT: atraumatic, normocephalic Eye exam: PRESENT: conjunctiva pink, EOMI, PERRLA. ABSENT: scleral icterus Ear exam: PRESENT: normal external ear exam Mouth exam: PRESENT: moist, tongue midline Neck exam: ABSENT: carotid bruit, JVD, lymphadenopathy, thyromegaly Respiratory exam: PRESENT: clear to auscultation valente. ABSENT: rales, rhonchi, wheezes Cardiovascular exam: PRESENT: irregular rhythm, +S1, +S2 Pulses: PRESENT: normal dorsalis pedis pul Vascular exam: PRESENT: normal capillary refill GI/Abdominal exam: PRESENT: normal bowel sounds, soft. ABSENT: distended, guarding, mass, organolmegaly, rebound, tenderness Rectal exam: PRESENT: deferred Extremities exam: PRESENT: tenderness - Left shoulder Musculoskeletal exam: PRESENT: ambulatory, deformity - Left upper arm, tenderness Neurological exam: PRESENT: alert, awake, oriented to person, oriented to place , oriented to time, oriented to situation, CN II-XII grossly intact. ABSENT: motor sensory deficit Psychiatric exam: PRESENT: appropriate affect, normal mood. ABSENT: homicidal ideation, suicidal ideation Skin exam: PRESENT: dry, intact, warm. ABSENT: cyanosis, rash Results Laboratory Results: 12/08/17 05:35 12/08/17 05:35 12/07/17 12/08/17 12/08/17 16:35 05:35 05:35 WBC 9.2 RBC 4.39 Hgb 14.2 Hct 38.8 MCV 88 MCH 32.4 MCHC 36.6 H RDW 13.4 Plt Count 213 Sodium 143.7 Potassium 4.1 Chloride 107 Carbon Dioxide 26 Anion Gap 11 BUN 18 Creatinine 1.21 Est GFR ( Amer) > 60 Est GFR (Non-Af Amer) > 60 Glucose 105 Calcium 8.7 Magnesium 2.1 Urine Color YELLOW Urine Appearance CLEAR Urine pH 6.0 Ur Specific [place] 1.028 Urine Protein NEGATIVE Urine Glucose (UA) NEGATIVE Urine Ketones NEGATIVE Urine Blood NEGATIVE Urine Nitrite NEGATIVE Ur Leukocyte Esterase NEGATIVE Urine WBC (Auto) 11 Urine RBC (Auto) 1 Impressions: Chest X-Ray 12/07/17 11:51 IMPRESSION: NO ACUTE RADIOGRAPHIC FINDING IN THE CHEST. Humerus X-Ray 12/07/17 11:51 IMPRESSION: Oblique fracture distal 3rd of the left humerus. Elbow X-Ray 12/07/17 13:18 IMPRESSION: 1 Oblique comminuted displaced fracture distal humerus. 2 Non-displaced hairline fracture proximal radius. Chest/Abdomen CTA 12/07/17 14:27 IMPRESSION: NORMAL CTA OF THE CHEST. NO PULMONARY EMBOLI. Assessment & Plan - Diagnosis (1) New onset atrial fibrillation Is this a current diagnosis for this admission?: Yes Plan: Patient is on metoprolol and rate control. Onset of A. fib is unclear. He was noted to have irregular heart rhythm and plasma donation center weeks ago. His chads score is 0. He does not need long-term anticoagulation. He will need follow-up with cardiology for possible cardioversion at a later time. (2) Closed fracture of left distal humerus Qualifiers: Encounter type: initial encounter Fracture alignment: displaced Is this a current diagnosis for this admission?: Yes Plan: He is going to the operating room today with Dr. Jimenez for repair of his left humerus fracture (3) Obesity Qualifiers: Obesity type: unspecified obesity type Obesity classification: unspecified obesity classification Is this a current diagnosis for this admission?: Yes Plan: Counseled. (4) Sleep disorder breathing Is this a current diagnosis for this admission?: Yes Plan: Follow up with his primary care provider with the sleep study as an outpatient. - Time Time Spent with patient: 25-34 minutes Total Critical Time (Minutes): 15 Medications reviewed and adjusted accordingly: Yes Anticipated discharge: Home with Homehealth Within: within 24 hours - Inpatient Certification Based on my medical assessment, after consideration of the patient's comorbidities, presenting symptoms, or acuity I expect that the services needed warrant INPATIENT care.: Yes I certify that my determination is in accordance with my understanding of Medicare's requirements for reasonable and necessary INPATIENT services [42 CFR 412.3e].: Yes Medical Necessity: Need For Continuous Telemetry Monitoring, Need for Pain Control, Need for Surgery
--- NOTE | 2017-12-08 17:16 | Operative Report ---
Operative Report DATE OF SURGERY: 12/08/17 PREOPERATIVE DIAGNOSIS: Left extra-articular distal humerus fracture POSTOPERATIVE DIAGNOSIS: Same OPERATION: ORIF left extra-articular distal humerus fracture with radial/ulnar nerve neurolysis SURGEON: MIR CUADRA ANESTHESIA: GA COMPLICATIONS: None ESTIMATED BLOOD LOSS: 700cc PROCEDURE: Indication for above procedure: Pleasant 42-year-old male who sustained a fall 8 feet onto his left arm. He was brought to the emergency room where x-rays demonstrated comminuted distal humerus fracture. Patient was found to be in new onset atrial fibrillation and thus was admitted to the hospitalist service. Patient was found to be medically stable for operative treatment and thus we discussed treatment options along with risks and benefits. Risks and benefits of the surgical procedure were explained to the patient, patient verbalized understanding consented for the procedure. Procedure In Detail: Patient was seen and evaluated in the preoperative holding area. The RIGHT upper extremity was initialized and marked. Patient received 2g of Ancef IV for bacterial prophylaxis. Patient was taken back to the operative room where transferred to the operative table and placed under general anesthesia. Once they were adequately anesthetized patient was placed in lateral position bilateral lower extremities carefully padded and nonoperative right upper extremity. A surgical team debriefing was performed ensuring all instrumentation was available, the surgical procedure was discussed with possible concerns reviewed. The upper extremity was prepped with ChloraPrep and draped in a sterile fashion. A timeout was done identifying correct patient, procedure and extremity everyone in attendance agree with this and verbalized no concerns. Given the patient's size of his extremity I was unable to utilize a sterile tourniquet. Longitudinal skin incision was made midline along the posterior humerus. Any peripheral bleeding was controlled with bipolar cautery. Blunt dissection was performed establishing lateral skin flaps. The posterior cutaneous nerve of the forearm was identified and tracked in a proximal direction where it met with the radial nerve. Once the radial nerve was identified there was small venous bleeders which were controlled with hemoclips. Two vessel loops were placed around the radial nerve. I then elevated the triceps to identify the fracture. Once the fracture was identified there was significant amount of hematoma which was decompressed the area was copiously irrigated with normal saline. The radial nerve was found to be wedged between the proximal and distal fragments there was evidence of radial nerve contusion but no evidence of discontinuity. A medial skin flap was then established any small peripheral bleeding was controlled with cautery. Branches of the medial antebrachial cutaneous nerve were identified and retracted. Proximally as it exited adjacent to the medial triceps the ulnar nerve was identified and a vessel loop placed. It was freed to the level of the medial epicondyle but not removed from the cubital tunnel. Via the lateral para tricipital approach I was able to first reduce the large proximal and distal fragments and then wedge the butterfly fragment into position. 3 interfragmentary 3.5 millimeter screws were placed into the large distal to the large proximal fragment obtaining good interfragmentary compression and fixation. The butterfly fragment was then secured with a lateral to medial 3.5 mm interfragmentary screw. An additional 2.7 interfragmentary screw was placed as well further providing fixation of the butterfly fragment. C-arm fluoroscopy was obtained confirming acceptable reduction of the fracture. Under direct visualization the radial nerve was elevated and a 10 hole posterior lateral [place] distal humeral plate was placed into position. The first was secured with a K wire and C-arm fluoroscopy was obtained to confirm appropriate placement of the plate. Once placement was confirmed the plate was secured proximally with bicortical fixation special attention was focused on the radial nerve to ensure no evidence of impingement. I then proceeded with fixation distally. 2 bicortical screws were placed further securing the plate to the distal humerus. Distal fixation was complete with 3 additional bicortical locking screws. Finally 2 additional bicortical screws were placed proximally along with a locking screw providing adequate fixation of a neutralization plate. There is no evidence of fracture instability. C-arm fluoroscopy was obtained demonstrating acceptable reduction of the fracture and placement of the hardware. No evidence of impingement at the olecranon fossa or intra-articular screw penetration. The wound was copiously irrigated with normal saline. Once again the radial nerve and ulnar nerve were explored to ensure no evidence of external compression. Any bleeding was controlled with cautery. The subcutaneous tissues were closed with 2-0 Vicryl and 3-0 Monocryl. Skin was closed with chad. 30 cc of 0.5% Marcaine with epinephrine was injected for postoperative pain control. Wound was dressed with Acticoat and OpSite and patient was placed in a posterior splint. Sponge counts, instrument counts, needle counts counts were correct. Patient was then awoken from anesthesia. Transferred from the operating room table to the operating room stretcher. There was no intraoperative complications patient tolerated procedure well stable to PACU. Postoperative plan: Given the large wound and lack of tourniquet however patient did have significant intraoperative blood loss intraoperative type and screen was obtained and we will check an H&H tonight. Patient will follow-up the office in 2 weeks at which point we will obtain radiographs and begin range of motion in Occupational Therapy.
--- NOTE | 2017-12-08 17:45 | RADIOLOGY REPORT (SQ) ---
EXAM DESCRIPTION: NO CHG FLUORO; ELBOW LEFT AP/LATERAL COMPLETED DATE/TIME: 12/08/2017 5:35 pm; 12/08/2017 5:36 pm REASON FOR STUDY: LEFT ELBOW ORIF COMPARISON: None. FLUOROSCOPY TIME: 0.6 minutes 7 Images saved to PACS LIMITATIONS: None. PROCEDURE: ORIF distal humeral fracture. FINDINGS: Images obtained with fluoro document placement other a long compression plate on the dorsa l aspect of the humerus with multiple screws. Additional screws traverse the fracture separately fro m the plate. IMPRESSION: ORIF distal humeral fracture. COMMENT: PQRS 6045F: Fluoroscopy time of the procedure is documented in the report. TECHNICAL DOCUMENTATION: JOB ID: [id number] [employer]- All Rights Reserved Reading location - IP/workstation name: [email or web address]
--- NOTE | 2017-12-08 17:45 | RADIOLOGY REPORT (SQ) ---
EXAM DESCRIPTION: NO CHG FLUORO; ELBOW LEFT AP/LATERAL COMPLETED DATE/TIME: 12/08/2017 5:35 pm; 12/08/2017 5:36 pm REASON FOR STUDY: LEFT ELBOW ORIF COMPARISON: None. FLUOROSCOPY TIME: 0.6 minutes 7 Images saved to PACS LIMITATIONS: None. PROCEDURE: ORIF distal humeral fracture. FINDINGS: Images obtained with fluoro document placement other a long compression plate on the dorsa l aspect of the humerus with multiple screws. Additional screws traverse the fracture separately fro m the plate. IMPRESSION: ORIF distal humeral fracture. COMMENT: PQRS 6045F: Fluoroscopy time of the procedure is documented in the report. TECHNICAL DOCUMENTATION: JOB ID: [id number]- All Rights Reserved Reading location - IP/workstation name: [email or web address]
[2017-12-08 19:02] LABS: HEMATOCRIT 38.7 % (37.9-51.0); HEMOGLOBIN 13.6 g/dL (13.5-17.0); MEAN CORPUSCULAR HEMOGLOBIN 31.6 pg (27.0-33.4); MEAN CORPUSCULAR HGB CONC 35.2 g/dL (32.0-36.0); MEAN CORPUSCULAR VOLUME 90 fl (80-97); PLATELET COUNT 253 10^3/uL (150-450); RED BLOOD COUNT 4.32 10^6/uL (4.35-5.55); RED CELL DISTRIBUTION WIDTH 13.3 % (11.5-14.0); WHITE BLOOD COUNT 13.7 10^3/uL (4.0-10.5)
[2017-12-09] MEDS: ENOXAPARIN SODIUM INJ 150 MG/1 ML DISP.SYRIN SUBCUT SCH ×2 (05:20→17:24)
[2017-12-09] MEDS: KETOROLAC TROMETHAMINE INJ/PF 30 MG/1 ML SDV IV PRN ×3 (05:26→20:58)
[2017-12-09 06:09] LABS: HEMATOCRIT 36.6 % (37.9-51.0); HEMOGLOBIN 13.1 g/dL (13.5-17.0); MEAN CORPUSCULAR HGB CONC 35.9 g/dL (32.0-36.0); MEAN CORPUSCULAR VOLUME 89 fl (80-97); PLATELET COUNT 247 10^3/uL (150-450); RED BLOOD COUNT 4.11 10^6/uL (4.35-5.55); RED CELL DISTRIBUTION WIDTH 13.3 % (11.5-14.0); WHITE BLOOD COUNT 12.7 10^3/uL (4.0-10.5)
[2017-12-09 07:39] LABS: APPEARANCE,URINE CLEAR; BILIRUBIN,URINE NEGATIVE (NEGATIVE); GLUCOSE, URINE NEGATIVE (NEGATIVE); KETONES,URINE NEGATIVE (NEGATIVE); LEUKOCYTE ESTERASE,URINE TRACE (NEGATIVE); NITRITE,URINE NEGATIVE (NEGATIVE); PROTEIN,URINE NEGATIVE (NEGATIVE)
[2017-12-09 07:40] LABS: COLOR,URINE DARK YELLOW
--- NOTE | 2017-12-09 09:39 | EKG REPORT ---
SEVERITY:- ABNORMAL ECG - ATRIAL FIBRILLATION, V-RATE 65-124 BORDERLINE R WAVE PROGRESSION, ANTERIOR LEADS : Confirmed by: José Miguel Bosch 09-Dec-2017 09:39:27
[2017-12-09] MEDS: METOPROLOL SUCCINATE 25 MG TAB.SR.24H PO SCH (10:00)
--- NOTE | 2017-12-09 11:38 | PDOC PROGRESS REPORT ---
Subjective Progress Note for:: 12/09/17 Subjective:: Patient is status post orthopedic surgery. Patient seems to be doing better. Pt is denying any chest arm or neck discomfort. Patient denying any PND, orthopnea. Patient denied any sustained palpitations, dizziness, syncope, near syncope. Patient denying any fever chills. Patient denying any other significant discomfort. Patient is maintaining atrial fibrillation. Heart rate seems somewhat on the higher side. Review of systems: Rest review of systems negative. Medications: Medications have been reviewed. Reason For Visit: AFIB,HUMEROUS FX Physical Exam Vital Signs: Temp Pulse Resp BP Pulse Ox 98.4 F 86 20 99/71 L 96 12/09/17 07:14 12/09/17 07:14 12/09/17 07:14 12/09/17 07:14 12/09/17 07:14 Intake & Output 12/08/17 12/09/17 12/10/17 06:59 06:59 06:59 Intake Total 804 4558 Output Total 1500 4225 Balance -696 333 Weight 127.4 kg 125.9 kg Exam: GENERAL: well-nourished and in no acute distress. Alert and oriented x3 HEAD: Atraumatic, normocephalic. EYES: Pupils equal round and reactive to light, extraocular movements intact, sclera anicteric, conjunctiva are normal. ENT: TMs normal, nares patent, oropharynx clear without exudates. Moist mucous membranes. No oral ulcerations or bleeding gums noted NECK: supple without lymphadenopathy. Trachea is central. No cervical or axillary lymphadenopathy noted. Carotids are 2+, JVD WNL LUNGS: Respiration seems nonlabored, no significant accessory muscle action noted. Breath sounds clear to auscultation bilaterally and equal noted. No wheezes rales or rhonchi noted. No significant dullness noted on percussion. CHEST: Palpation of the chest wall shows no significant chest wall tenderness. HEART: [place] [employer], No PSH, 1/6 JUANY aortic area, 1/6 tom systolic murmur mitral area, no rubs, no gallops. ABDOMEN: Soft, no significant tenderness appreciated, normoactive bowel sounds. No guarding, no rebound. No rigidity noted . No masses appreciated. EXTREMITIES: Pedal pulses are 1-2+, no calf tenderness noted. No clubbing or cyanosis. negative pedal edema noted NEUROLOGICAL: Focused neurological exam showed no significant neurologic deficit. Normal speech, no focal weakness appreciated. PSYCH: Normal mood, normal affect. Judgment and insight within normal limits. SKIN: No significant ecchymosis, skin is noted to be warm. MUSCULOSKELETAL EXAM: No significant acute joint swelling noted. Left arm is status post surgery and is in a soft cast Results Laboratory Results: 12/09/17 05:42 12/08/17 05:35 12/08/17 12/08/17 12/09/17 15:55 15:55 05:42 WBC 13.7 H 12.7 H RBC 4.32 L 4.11 L Hgb 13.6 13.1 L Hct 38.7 36.6 L MCV 90 89 MCH 31.6 32.0 MCHC 35.2 35.9 RDW 13.3 13.3 Plt Count 253 247 Urine Color Urine Appearance Urine pH Ur Specific [place] Urine Protein Urine Glucose (UA) Urine Ketones Urine Blood Urine Nitrite Ur Leukocyte Esterase Urine WBC (Auto) Urine RBC (Auto) Blood Type O POSITIVE Antibody Screen NEGATIVE 12/09/17 06:00 WBC RBC Hgb Hct MCV MCH MCHC RDW Plt Count Urine Color DARK YELLOW Urine Appearance CLEAR Urine pH 5.0 Ur Specific [place] 1.030 Urine Protein NEGATIVE Urine Glucose (UA) NEGATIVE Urine Ketones NEGATIVE Urine Blood NEGATIVE Urine Nitrite NEGATIVE Ur Leukocyte Esterase TRACE H Urine WBC (Auto) 14 Urine RBC (Auto) 2 Blood Type Antibody Screen EKG Comments: Shows atrial fibrillation with controlled ventricular response. Impressions: Chest X-Ray 12/07/17 11:51 IMPRESSION: NO ACUTE RADIOGRAPHIC FINDING IN THE CHEST. Humerus X-Ray 12/07/17 11:51 IMPRESSION: Oblique fracture distal 3rd of the left humerus. Chest/Abdomen CTA 12/07/17 14:27 IMPRESSION: NORMAL CTA OF THE CHEST. NO PULMONARY EMBOLI. Elbow X-Ray 12/08/17 00:00 IMPRESSION: ORIF distal humeral fracture. Fluoroscopy 12/08/17 00:00 IMPRESSION: ORIF distal humeral fracture. Assessment & Plan - Diagnosis (1) Atrial fibrillation Qualifiers: Atrial fibrillation type: unspecified Qualified Code(s): I48.91 - Unspecified atrial fibrillation Is this a current diagnosis for this admission?: Yes (2) Closed fracture of left distal humerus Qualifiers: Encounter type: initial encounter Fracture alignment: displaced Is this a current diagnosis for this admission?: Yes (3) Obesity Qualifiers: Obesity type: unspecified obesity type Obesity classification: unspecified obesity classification Is this a current diagnosis for this admission?: Yes (4) Sleep disorder breathing Is this a current diagnosis for this admission?: Yes (5) Preoperative cardiovascular examination Is this a current diagnosis for this admission?: Yes - Notes Notes: Heart rate noted to be somewhat on the high side. Have therefore increased metoprolol succinate to 50 mg p.o. twice daily. Atrial fibrillation: It seems now other evaluation and history taking, the duration of atrial fibrillation is unknown and could have been as long as 2 weeks or may even be longer. 2D echo shows normal LVEF. No significant stenotic or regurgitant lesions noted. Once he recovered from this acute problem, will recommend EP consultation as an outpatient for ablation/ antiarrhythmic therapy/cardioversion. At this point do not feel he needs chronic anticoagulation because of [id number] being 0. And risk benefits do not favor chronic anticoagulation. I have discussed this with the patient and his in the room. Patient will benefit from tertiary care referral for possible ablation given patient's young age. Have written orders for the patient to be seen at [facility] electrophysiological clinic. Fracture left distal humerus: Patient being managed by orthopedics. Patient is status post surgery. Sleep disordered breathing: Patient will benefit from a sleep study which can be arranged as an outpatient through my office. Obesity: Patient has been encouraged in weight loss. Recommend DVT prophylaxis, good pain control, pulmonary toilet etc. - Time Time with patient: Greater than 35 minutes - CODE STATUS was discussed, patient remains full code. Surrogate decision-maker unchanged. Multiple medical problems were addressed. More than 50% of the time spent coordinating care, discussing management plans with involved caregivers. Management plans discussed with involved personnels. Medical decision making was of moderate to high complexity, patient's has multiple comorbidities. Medications reviewed and adjusted accordingly: Yes
[2017-12-09] MEDS: DOCUSATE SODIUM 100 MG CAPSULE PO SCH (18:05)
--- NOTE | 2017-12-09 19:05 | PDOC PROGRESS REPORT ---
Subjective Progress Note for:: 12/09/17 Subjective:: Complains of pain left arm status post surgery yesterday. No fever or chills, no chest pain or shortness of breath. Denies palpitations at this time. Reason For Visit: AFIB,HUMEROUS FX Physical Exam Vital Signs: Temp Pulse Resp BP Pulse Ox 98.4 F 88 16 103/68 96 12/09/17 15:29 12/09/17 15:29 12/09/17 15:29 12/09/17 15:29 12/09/17 15:29 Intake & Output 12/08/17 12/09/17 12/10/17 06:59 06:59 06:59 Intake Total 804 4558 833 Output Total 1500 4225 0 Balance -696 333 833 Weight 127.4 kg 125.9 kg GEN: NAD, well-developed, well-nourished CV: Regular rate, slightly irregular rhythm, NL S1S2 LUNGS: CTA bilaterally ABDOMEN Soft, NT, +BS EXTERMITIES: No e/c/c, splint left and intact NEURO: Alert, oriented 3, nonfocal Results Laboratory Results: 12/09/17 05:42 12/08/17 05:35 12/08/17 12/09/17 12/09/17 15:55 05:42 06:00 WBC 13.7 H 12.7 H RBC 4.32 L 4.11 L Hgb 13.6 13.1 L Hct 38.7 36.6 L MCV 90 89 MCH 31.6 32.0 MCHC 35.2 35.9 RDW 13.3 13.3 Plt Count 253 247 Urine Color DARK YELLOW Urine Appearance CLEAR Urine pH 5.0 Ur Specific [place] 1.030 Urine Protein NEGATIVE Urine Glucose (UA) NEGATIVE Urine Ketones NEGATIVE Urine Blood NEGATIVE Urine Nitrite NEGATIVE Ur Leukocyte Esterase TRACE H Urine WBC (Auto) 14 Urine RBC (Auto) 2 Impressions: Chest X-Ray 12/07/17 11:51 IMPRESSION: NO ACUTE RADIOGRAPHIC FINDING IN THE CHEST. Humerus X-Ray 12/07/17 11:51 IMPRESSION: Oblique fracture distal 3rd of the left humerus. Chest/Abdomen CTA 12/07/17 14:27 IMPRESSION: NORMAL CTA OF THE CHEST. NO PULMONARY EMBOLI. Elbow X-Ray 12/08/17 00:00 IMPRESSION: ORIF distal humeral fracture. Fluoroscopy 12/08/17 00:00 IMPRESSION: ORIF distal humeral fracture. Assessment & Plan - Plan Summary Plan Summary: (1) New onset atrial fibrillation Is this a current diagnosis for this admission?: Yes Plan: Continue rate control with metoprolol, cardiology follow-up appreciated with metoprolol dose increased today. His chads score is 0. He does not need long- term anticoagulation at this time. He will need follow-up with cardiology for possible cardioversion at a later time. (2) Closed fracture of left distal humerus Qualifiers: Encounter type: initial encounter Fracture alignment: displaced Is this a current diagnosis for this admission?: Yes Plan: Status post surgical repair with Dr. Tony hedrick his left humerus fracture (3) Obesity Qualifiers: Obesity type: unspecified obesity type Obesity classification: unspecified obesity classification Is this a current diagnosis for this admission?: Yes Plan: Counseled about weight loss. (4) Sleep disorder breathing Is this a current diagnosis for this admission?: Yes Plan: Follow up with his primary care provider as well as Dr. Bosch of cardiology for sleep study as an outpatient.
[2017-12-09] MEDS: METOPROLOL SUCCINATE 50 MG TAB.SR.24H PO SCH (21:00)
[2017-12-10] MEDS: KETOROLAC TROMETHAMINE INJ/PF 30 MG/1 ML SDV IV PRN ×2 (03:25→09:35)
[2017-12-10] MEDS: OXYCODONE-ACETAMINOPHEN 5-325 MG TABLET PO PRN ×2 (04:15→11:07)
[2017-12-10] MEDS: ENOXAPARIN SODIUM INJ 150 MG/1 ML DISP.SYRIN SUBCUT SCH (05:17)
[2017-12-10 06:24] LABS: ABSOLUTE EOSINOPHILS # (AUTO) 0.4 10^3/uL (0.0-0.6); ABSOLUTE LYMPHOCYTES (AUTO) 1.9 10^3/uL (0.5-4.7); ABSOLUTE MONOCYTES (AUTO) 0.6 10^3/uL (0.1-1.4); ABSOLUTE NEUT (AUTO) 4.1 10^3/uL (1.7-8.2); BASOPHILS % (AUTO) 0.7 % (0-2); EOSINOPHILS % (AUTO) 5.5 % (0-6); HEMATOCRIT 30.7 % (37.9-51.0); HEMOGLOBIN 11.1 g/dL (13.5-17.0); LYMPHOCYTES % (AUTO) 26.7 % (13-45); MEAN CORPUSCULAR HEMOGLOBIN 32.3 pg (27.0-33.4); MEAN CORPUSCULAR HGB CONC 36.3 g/dL (32.0-36.0); MEAN CORPUSCULAR VOLUME 89 fl (80-97); MONOCYTES % (AUTO) 8.3 % (3-13); PLATELET COUNT 188 10^3/uL (150-450); RED BLOOD COUNT 3.45 10^6/uL (4.35-5.55); SEGMENTED NEUTROPHILS % (AUTO) 58.8 % (42-78); TOTAL CELLS COUNTED % (AUTO) 100 %
[2017-12-10 06:41] LABS: ANION GAP 6 (5-19); BLOOD UREA NITROGEN 18 mg/dL (7-20); CALCIUM 8.6 mg/dL (8.4-10.2); CARBON DIOXIDE 27 mmol/L (22-30); CHLORIDE 109 mmol/L (98-107); GLUCOSE 101 mg/dL (75-110); POTASSIUM 4.1 mmol/L (3.6-5.0); SODIUM 142.3 mmol/L (137-145)
[2017-12-10] MEDS: METOPROLOL SUCCINATE 50 MG TAB.SR.24H PO SCH (09:35)
[2017-12-10] MEDS: DOCUSATE SODIUM 100 MG CAPSULE PO SCH (09:36)
--- NOTE | 2017-12-10 09:37 | EKG REPORT ---
SEVERITY:- ABNORMAL ECG - ATRIAL FIBRILLATION, V-RATE 56-89 BORDERLINE R WAVE PROGRESSION, ANTERIOR LEADS : Confirmed by: José Miguel Bosch 10-Dec-2017 09:37:03
[2017-12-10] MEDS ORDERED: POLYETHYLENE GLYCOL 3350 POWDER 17 GM/1 PACKET PO SCH (10:00)
--- NOTE | 2017-12-10 11:58 | PDOC PROGRESS REPORT ---
Subjective Progress Note for:: 12/10/17 Subjective:: Patient is status post orthopedic surgery. Patient seems to be doing better. Pt is denying any chest arm or neck discomfort. Patient denying any PND, orthopnea. Patient denied any sustained palpitations, dizziness, syncope, near syncope. Patient denying any fever chills. Patient denying any other significant discomfort. Patient is maintaining atrial fibrillation. Heart rate today seems reasonably well controlled on current dose of beta-rissa.. Review of systems: Rest review of systems negative. Medications: Medications have been reviewed. Reason For Visit: AFIB,HUMEROUS FX Physical Exam Vital Signs: Temp Pulse Resp BP Pulse Ox 98.2 F 64 18 134/67 H 99 12/10/17 07:42 12/10/17 07:42 12/10/17 07:42 12/10/17 07:42 12/10/17 07:42 Intake & Output 12/09/17 12/10/17 12/11/17 06:59 06:59 06:59 Intake Total 4558 1062 Output Total 4225 775 Balance 333 287 Weight 125.9 kg 128.5 kg Exam: GENERAL: well-nourished and in no acute distress. Alert and oriented x3 HEAD: Atraumatic, normocephalic. EYES: Pupils equal round and reactive to light, extraocular movements intact, sclera anicteric, conjunctiva are normal. ENT: TMs normal, nares patent, oropharynx clear without exudates. Moist mucous membranes. No oral ulcerations or bleeding gums noted NECK: supple without lymphadenopathy. Trachea is central. No cervical or axillary lymphadenopathy noted. Carotids are 2+, JVD WNL LUNGS: Respiration seems nonlabored, no significant accessory muscle action noted. Breath sounds clear to auscultation bilaterally and equal noted. No wheezes rales or rhonchi noted. No significant dullness noted on percussion. CHEST: Palpation of the chest wall shows no significant chest wall tenderness. 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 ABDOMEN: Soft, no significant tenderness appreciated, normoactive bowel sounds. No guarding, no rebound. No rigidity noted . No masses appreciated. EXTREMITIES: Pedal pulses are 1-2+, no calf tenderness noted. No clubbing or cyanosis. negative pedal edema noted NEUROLOGICAL: Focused neurological exam showed no significant neurologic deficit. Normal speech, no focal weakness appreciated. PSYCH: Normal mood, normal affect. Judgment and insight within normal limits. SKIN: No significant ecchymosis, skin is noted to be warm. MUSCULOSKELETAL EXAM: No significant acute joint swelling noted. Left upper extremity in cast having had surgery to fix distal humeral fracture Results Laboratory Results: 12/10/17 05:36 12/10/17 05:36 12/10/17 12/10/17 05:36 05:36 WBC 7.0 RBC 3.45 L Hgb 11.1 L Hct 30.7 L MCV 89 MCH 32.3 MCHC 36.3 H RDW 13.0 Plt Count 188 Seg Neutrophils % 58.8 Lymphocytes % 26.7 Monocytes % 8.3 Eosinophils % 5.5 Basophils % 0.7 Absolute Neutrophils 4.1 Absolute Lymphocytes 1.9 Absolute Monocytes 0.6 Absolute Eosinophils 0.4 Absolute Basophils 0.0 Sodium 142.3 Potassium 4.1 Chloride 109 H Carbon Dioxide 27 Anion Gap 6 BUN 18 Creatinine 1.18 Est GFR ( Amer) > 60 Est GFR (Non-Af Amer) > 60 Glucose 101 Calcium 8.6 EKG Comments: Twelve-lead EKG shows continuation of atrial fibrillation. No acute ST-T wave changes are noted Impressions: Chest X-Ray 12/07/17 11:51 IMPRESSION: NO ACUTE RADIOGRAPHIC FINDING IN THE CHEST. Humerus X-Ray 12/07/17 11:51 IMPRESSION: Oblique fracture distal 3rd of the left humerus. Chest/Abdomen CTA 12/07/17 14:27 IMPRESSION: NORMAL CTA OF THE CHEST. NO PULMONARY EMBOLI. Elbow X-Ray 12/08/17 00:00 IMPRESSION: ORIF distal humeral fracture. Fluoroscopy 12/08/17 00:00 IMPRESSION: ORIF distal humeral fracture. Assessment & Plan - Diagnosis (1) Atrial fibrillation Qualifiers: Atrial fibrillation type: unspecified Qualified Code(s): I48.91 - Unspecified atrial fibrillation Is this a current diagnosis for this admission?: Yes (2) Closed fracture of left distal humerus Qualifiers: Encounter type: initial encounter Fracture alignment: displaced Is this a current diagnosis for this admission?: Yes (3) Obesity Qualifiers: Obesity type: unspecified obesity type Obesity classification: unspecified obesity classification Is this a current diagnosis for this admission?: Yes (4) Sleep disorder breathing Is this a current diagnosis for this admission?: Yes (5) Preoperative cardiovascular examination Is this a current diagnosis for this admission?: Yes - Notes Notes: Atrial fibrillation: Patient is noted to have persistent atrial fibrillation. 2D echo shows normal LVEF. At this point do not feel he needs chronic anticoagulation because of [id number] being 0. And risk benefits do not favor chronic anticoagulation. I have discussed this with the patient and his in the room. Patient will benefit from tertiary care referral for possible ablation given patient's young age. Referral form completed by the medical secretary who is going to get an appointment for him. Patient also given my card, he could follow-up with me if he wishes. Fracture left distal humerus: Patient being managed by orthopedics. Patient is status post surgery. Sleep disordered breathing: Patient will benefit from a sleep study which can be arranged as an outpatient through my office. Obesity: Patient has been encouraged in weight loss. Patient being discharged home today. Will sign off. Please reconsult if needed. - Time Time with patient: 15-25 minutes - CODE STATUS was discussed, patient remains full code. Surrogate decision-maker unchanged. Multiple medical problems were addressed. More than 50% of the time spent coordinating care, discussing management plans with involved caregivers. Management plans discussed with involved personnels. Medical decision making was of moderate to high complexity , patient's has multiple comorbidities. Medications reviewed and adjusted accordingly: Yes
--- NOTE | 2017-12-10 12:19 | PDOC DISCHARGE SUMMARY ---
General - Admit/Disc Date/PCP Admission Date/Primary Care Provider: 12/07/17 13:32 Discharge Date: 12/10/17 - Additional Information Resuscitation Status: Full Code Discharge Diet: As Tolerated Discharge Activity: No Lifting Over 10 Pounds, No Lifting/Push/Pulling Prescriptions: Ibuprofen 800 mg PO Q8H PRN 30 Days #60 tablet PRN Reason: For Pain Metoprolol Succinate [Toprol Xl 50 mg Tab.sr] 50 mg PO Q12 30 Days #60 tab.sr.24h Oxycodone HCl/Acetaminophen [Percocet 5-325 mg Tablet] 1 - 2 tab PO ASDIR PRN # 35 tablet PRN Reason: Home Medications: Oxycodone HCl/Acetaminophen [Percocet 5-325 mg Tablet] 1 - 2 tab PO ASDIR PRN # 35 tablet 12/08/17 Ibuprofen 800 mg PO Q8H PRN 30 Days #60 tablet 12/10/17 Metoprolol Succinate [Toprol Xl 50 mg Tab.sr] 50 mg PO Q12 30 Days #60 tab.sr.24h 12/10/17 History of Present Illness History of Present Illness: JIMBO NICHOLSON is a 42 year old male Physical Exam Vital Signs: Temp Pulse Resp BP Pulse Ox 98.2 F 64 18 134/67 H 99 12/10/17 07:42 12/10/17 07:42 12/10/17 07:42 12/10/17 07:42 12/10/17 07:42 Intake & Output 12/09/17 12/10/17 12/11/17 06:59 06:59 06:59 Intake Total 4558 1062 Output Total 4225 775 Balance 333 287 Weight 125.9 kg 128.5 kg Results Laboratory Results: 12/10/17 05:36 12/10/17 05:36 12/10/17 12/10/17 05:36 05:36 WBC 7.0 RBC 3.45 L Hgb 11.1 L Hct 30.7 L MCV 89 MCH 32.3 MCHC 36.3 H RDW 13.0 Plt Count 188 Seg Neutrophils % 58.8 Lymphocytes % 26.7 Monocytes % 8.3 Eosinophils % 5.5 Basophils % 0.7 Absolute Neutrophils 4.1 Absolute Lymphocytes 1.9 Absolute Monocytes 0.6 Absolute Eosinophils 0.4 Absolute Basophils 0.0 Sodium 142.3 Potassium 4.1 Chloride 109 H Carbon Dioxide 27 Anion Gap 6 BUN 18 Creatinine 1.18 Est GFR ( Amer) > 60 Est GFR (Non-Af Amer) > 60 Glucose 101 Calcium 8.6 Impressions: Chest X-Ray 12/07/17 11:51 IMPRESSION: NO ACUTE RADIOGRAPHIC FINDING IN THE CHEST. Humerus X-Ray 12/07/17 11:51 IMPRESSION: Oblique fracture distal 3rd of the left humerus. Chest/Abdomen CTA 12/07/17 14:27 IMPRESSION: NORMAL CTA OF THE CHEST. NO PULMONARY EMBOLI. Elbow X-Ray 12/08/17 00:00 IMPRESSION: ORIF distal humeral fracture. Fluoroscopy 12/08/17 00:00
[2017-12-10 14:19] VITALS: BP 149/88
== END 2017-12-10 14:56 | disposition home or self-care (01) | DRG 493 ==
LOC: ER 11:27 → EH 13:32 → 3S 16:00
PROVIDERS: ADMIT Internal Medicine; ATTEND Internal Medicine
PROC: 01N60ZZ Release Radial Nerve, Open Approach (ICD-10-PCS; 2017-12-08)
PROC: 01N40ZZ Release Ulnar Nerve, Open Approach (ICD-10-PCS; 2017-12-08)
PROC: 0PSG34Z Reposition Left Humeral Shaft with Internal Fixation Device, Percutaneous Approach (ICD-10-PCS; principal; 2017-12-08 13:30)
DX: S42.402A Unspecified fracture of lower end of left humerus, initial encounter for closed fracture (principal); N17.9 Acute kidney failure, unspecified; I48.91 Unspecified atrial fibrillation; E03.9 Hypothyroidism, unspecified; S52.102A Unspecified fracture of upper end of left radius, initial encounter for closed fracture; W17.89XA Other fall from one level to another, initial encounter; Y92.9 Unspecified place or not applicable; E66.9 Obesity, unspecified; Z68.35 Body mass index [BMI] 35.0-35.9, adult; Z88.2 Allergy status to sulfonamides; Z82.49 Family history of ischemic heart disease and other diseases of the circulatory system; Z82.3 Family history of stroke
CPT/HCPCS: 01740; 36415; 71045; 71275; 80048; 80053; 80307; 81001; 82550; 83735; 84439; 84443; 84481; 84484; 85025; 85027; 85379; 85610; 86850; 86900; 86901; 93005; 93010; 93306; 96374; 99291; C1713; J0131; J0330; J0690; J1100; J1885; J2250; J2405; J2550; J2704; J2765; J3010; J3490; J7030; L0120

== ENCOUNTER → 2018-01-08 | Outpatient (CLI) | payer OTHER | LOC: CCC 10:28 | DX: E03.9 Hypothyroidism, unspecified (principal) | CPT/HCPCS: 36415; 84443 ==

== ENCOUNTER → 2018-03-10 | Outpatient (CLI) | payer OTHER | LOC: CCC 12:13 | DX: E03.9 Hypothyroidism, unspecified (principal) | CPT/HCPCS: 36415; 84443 ==

== ENCOUNTER 2018-03-17 12:22 | Emergency (ER) | payer SELFPAY ==
[2018-03-17 12:31] VITALS: BP 124/79
--- NOTE | 2018-03-17 12:36 | ER Document Report ---
HPI - HPI Patient complains to provider of: scrotal and penile itch/red Onset: Other - 3 weeks Pain Level: 3 Context: 42-year-old complaining of scrotal and some penile rash and itch for 3 weeks. [id number] clotrimazole helps some but has not resolved. He has not seen a air conditioning unit tester. Denies diabetes. Associated Symptoms: None Exacerbated by: Denies Relieved by: Denies Similar symptoms previously: No Recently seen / treated by doctor: No - ROS ROS below otherwise negative: Yes Systems Reviewed and Negative: Yes All other systems reviewed and negative Past Medical History - General Information source: Patient - Social History Smoking Status: Unknown if Ever Smoked Lives with: Spouse/Significant other Family History: Reviewed & Not Pertinent - Medical History Medical History: Negative Renal/ Medical History: Denies: Hx Peritoneal Dialysis Past Surgical History: Reports: Other - Corrective eye surgery as a child - Immunizations Hx Diphtheria, Pertussis, Tetanus Vaccination: Yes Vertical Provider Document - CONSTITUTIONAL Agree With Documented VS: Yes Exam Limitations: No Limitations - INFECTION CONTROL TRAVEL OUTSIDE OF THE [place] IN LAST 30 DAYS: No - REPRODUCTIVE Male Genitalia: Abnormal Inspection - erythematous rash with excoriations or open lesions scrotum and a few on distal dorsal penis. His girlfriend was the standby for the exam Course - Re-evaluation Re-evalutation: 03/17/18 13 03/17/18 13:12 accucheck normal - Vital Signs Vital signs: Temp Pulse Resp BP Pulse Ox 97.6 F 55 L 14 124/79 96 03/17/18 12:29 03/17/18 12:29 03/17/18 12:29 03/17/18 12:29 03/17/18 12:29 Discharge - Discharge Clinical Impression: Tinea cruris Condition: Good Disposition: HOME, SELF-CARE Instructions: Skin Fungus ([facility]), Topical Antifungal ([facility]) Additional Instructions: [id number] Lamisil which is terbinafine antifungal cream 3 times a day See the air conditioning unit tester if persists Your Accu-Chek was normal Referrals: JUDI HANNAH DO [ACTIVE STAFF] - Follow up as needed
== END 2018-03-17 13:20 | disposition home or self-care (01) ==
LOC: ER 12:22
DX: B35.6 Tinea cruris (principal); L29.1 Pruritus scroti
CPT/HCPCS: 82962; 99282

== ENCOUNTER → 2018-06-08 | Outpatient (CLI) | payer OTHER | LOC: CCC 13:53 | DX: E03.9 Hypothyroidism, unspecified (principal) | CPT/HCPCS: 36415; 84443 ==

== ENCOUNTER → 2019-03-10 | Outpatient (CLI) | payer BC | LOC: OD 16:52 | PROVIDERS: ATTEND Internal Medicine Cardiovascular Disease | DX: E03.9 Hypothyroidism, unspecified (principal) | CPT/HCPCS: 36415; 84443 ==

== ENCOUNTER → 2019-04-08 | Outpatient (CLI) | payer BC | LOC: OD 09:14 | PROVIDERS: ATTEND Physician Assistant | DX: I48.91 Unspecified atrial fibrillation (principal); E03.9 Hypothyroidism, unspecified | CPT/HCPCS: 36415; 84443 ==

== ENCOUNTER → 2019-12-22 | Outpatient (CLI) | payer BC ==
--- NOTE | 2019-12-22 13:24 | DRAGON STRESS TEST REPORT ---
EXERCISE CARDIOLITE STRESS TEST USING SINGLE PHOTON EMMISION COMPUTERIZED TOMOGRAPHIC. DATE OF PROCEDURE: December 22, 2019 INDICATION : Atrial fibrillation CARDIAC RISK FACTORS: Obesity RESTING EKG: Atrial fibrillation. Minor nonspecific ST segment changes. REASON FOR TERMINATION: Dyspnea and fatigue. PROCEDURE REPORT: Baseline heart rate 100 beats per minute with blood pressure of 124/73. Patient had no significant complaints. Patient was exercised on a standard [facility] protocol. Patient exercised for a total of 4 minutes and 45 seconds. Peak heart rate 206 which is 115 % of predicted maximum. Peak blood pressure 148/63. Double product was noted to be adequate kcal. No significant EKG changes were noted. Patient had no significant complaints during the procedure or postprocedure. IMPRESSION EXERCISE PART: Below average exercise tolerance. Mild, [address] segment depression noted in lateral chest leads, this normalized quickly in recovery. NUCLEAR DATA: At rest the patient was given 15.79 millicuries of technetium 99 sestamibi injected intravenously. As per protocol rest gated SPECT images were obtained. Subsequently the stress dose of 44.9 millicuries of technetium 99 sestamibi was injected intravenously at peak exercise and patient continued to exercise for 1 to 2 additional minute. As per protocol stress gated images were obtained. NUCLEAR INTERPRETATION: Both raw and processed data were used for interpretation. Visual, qualitative, computer-generated quantitative data was used. There was good myocardial uptake of technetium compound. Motion artifact and soft tissue attenuations were noted. Increased visceral uptake was noted. No definitive areas of transient perfusion defect noted except for borderline decreased uptake in the distal inferior wall, SDS of 1, therefore felt not to be significant however clinical correlation is requested. No definitive areas of fixed perfusion defect or scars noted. EKG gated imaging showed LV EF at 36 %, rest and stress gated EF similar visually. T. I D. ratio was 1.00. Lung heart ratio noted to be within normal limits 0.29. No significant extracardiac and abnormal radiotracer activities were noted. RV free wall uptake was noted to be WNL. IMPRESSION: Also refer to comments under nuclear interpretation. Also test results needs to be interpreted in the context of pretest probability. 1. There is no definitive scintigraphic evidence of exercise induced myocardial ischemia at achieved double product. 2. There is no definitive scintigraphic evidence of myocardial infarction/scar. 3. EKG gated imaging shows left ejection fraction of approximately 36 %. 4. Patient noted to have average exercise tolerance. Patient had excessive increased heart rate response. BP response mildly suboptimal. Borderline significant EKG changes were noted with exercise at adequate double product, felt to be rate related. RECOMMENDATIONS: Consider rate control as heart rate response was excessive to underlying atrial fibrillation. Aggressive risk factor modification, medical therapy. Further evaluation may be needed if patient continues with significant symptoms or has other high risk features. Clinical correlation with echocardiogram derived ejection fraction. Consider cardiology consultation and or follow-up if clinically indicated. I AM AVAILABLE FOR CARDIOLOGY CONSULTATION AND FOLLOWUP IF REQUESTED BY PMD JALEESA Kenny M.D. Traffic Rate Computer grocery carrier, Board certified in cardiovascular diseases, Nuclear cardiology, Echocardiography Cardiac CT and cardiac MRI Ph. [phone] VINICIO
--- NOTE | 2019-12-22 13:28 | DRAGON STRESS TEST REPORT ---
INTRAVENOUS LEXISCAN CARDIOLITE STRESS TEST USING SINGLE PHOTON EMMISION COMPUTERIZED TOMOGRAPHIC. DATE OF PROCEDURE: December 22, 2019. INDICATION : Coronary artery disease, history of CABG, patient with chest pain CARDIAC RISK FACTORS: Diabetes, hypertension, dyslipidemia RESTING EKG: Sinus rhythm, no baseline ST segment changes noted. Left arm right arm lead reversal STRESS EKG: No significant ST segment changes noted with LexiScan bolus REASON FOR TERMINATION: Protocol. PROCEDURE REPORT: Baseline heart rate 77 beats per minute with blood pressure of 114/62. Patient had no significant complaints. Patient was bolused with Lexiscan 0.4 mg intravenously followed by saline bolus. Heart rate at 2 minutes post bolus 85 with a blood pressure of 136/68. 3 minutes post bolus heart rate 82 with blood pressure of 115/69. No significant EKG changes were noted. Patient had no significant complaints during the procedure or postprocedure. CONCLUSIONS: Normal EKG and hemodynamic response to IV LexiScan. NUCLEAR DATA: At rest the patient was given 15.73 millicuries of technetium 99 sestamibi injected intravenously. As per protocol rest gated SPECT images were obtained. On day of stress test, the patient was given intravenous LexiScan at a dose of 0.4 mg in 5 mL intravenously, followed by flush with normal saline. Subsequently the stress dose of 45.5 millicuries of technetium 99 sestamibi was injected intravenously. As per protocol stress gated images were obtained. NUCLEAR INTERPRETATION: Both raw and processed data were used for interpretation. Visual, qualitative, computer-generated quantitative data was used. There was good myocardial uptake of technetium compound. Motion artifact and soft tissue attenuations were noted. Increased visceral uptake was noted. No definitive areas of transient perfusion defect noted, No definitive areas of fixed perfusion defect or scars noted. EKG gated imaging showed LV EF at 55 %, rest and stress gated EF similar visually. T. I D. ratio was 1.12. Lung heart ratio noted to be within normal limits 0.27. No significant extracardiac and abnormal radiotracer activities were noted. RV free wall uptake was noted to be mildly increased consistent with RVH. IMPRESSION: Also refer to comments under nuclear interpretation. Also test results needs to be interpreted in the context of pretest probability. 1. No definitive areas of transient perfusion defect noted. 2. There is no definitive scintigraphic evidence of myocardial infarction/scar. 3. EKG gated imaging shows left ventricular ejection fraction of approx. 55 %. 4. Clinical correlation requested as worse disease and or balanced ischemia could be missed. In approximately 10% of the cases Lexiscan may not cause adequate vasodilatory stress. RECOMMENDATIONS: Aggressive risk factor modification and medical management. Further evaluation may be needed if continued symptoms or other high risk indicators are noted on clinical evaluation. Close cardiology follow-up is also recommended. Clinical correlation with echocardiogram derived ejection fraction. Inability to exercise by itself can lead to increased cardiovascular event risks. Consider cardiology consultation and or follow-up if clinically indicated. I am available for cardiology evaluation and consultation if requested by the asl interpreter, unless patient already has a gear shaper set up operator. Dr. Vania Bosch. MRCP Board certified in cardiology and sleep medicine. Board certified in nuclear cardiology, adult echocardiography. VINICIO
== END ==
LOC: RAD 08:05
PROVIDERS: ATTEND Physician Assistant
DX: I48.91 Unspecified atrial fibrillation (principal); I10 Essential (primary) hypertension; E78.5 Hyperlipidemia, unspecified; E11.9 Type 2 diabetes mellitus without complications
CPT/HCPCS: 93017; 78452; A9500; Q9969

== ENCOUNTER → 2019-12-27 | Outpatient (CLI) | payer BC ==
[2019-12-27 08:09] LABS: HEMATOCRIT 44.6 % (37.9-51.0); HEMOGLOBIN 15.9 g/dL (13.5-17.0); MEAN CORPUSCULAR HEMOGLOBIN 31.9 pg (27.0-33.4); MEAN CORPUSCULAR HGB CONC 35.6 g/dL (32.0-36.0); MEAN CORPUSCULAR VOLUME 90 fl (80-97); PLATELET COUNT 176 10^3/uL (150-450); RED BLOOD COUNT 4.97 10^6/uL (4.35-5.55); RED CELL DISTRIBUTION WIDTH 12.9 % (11.5-14.0); WHITE BLOOD COUNT 7.4 10^3/uL (4.0-10.5)
[2019-12-27 08:35] LABS: ALBUMIN 4.4 g/dL (3.5-5.0); ALKALINE PHOSPHATASE 116 U/L (38-126); ANION GAP 6 (5-19); ASPARTATE AMINO TRANSFERASE 53 U/L (17-59); BILIRUBIN,DIRECT 0.1 mg/dL (0.0-0.4); BLOOD UREA NITROGEN 20 mg/dL (7-20); CALCIUM 9.1 mg/dL (8.4-10.2); CARBON DIOXIDE 28 mmol/L (22-30); CHLORIDE 104 mmol/L (98-107); GLUCOSE 97 mg/dL (75-110); POTASSIUM 4.7 mmol/L (3.6-5.0); TOTAL PROTEIN 7.8 g/dL (6.3-8.2); TRIGLYCERIDES 299 mg/dL (<150)
[2019-12-27 08:46] LABS: DIRECT LDL 75 mg/dL (<100)
[2019-12-27 08:52] LABS: VLDL CHOLESTEROL 59.8 mg/dL (10-31)
== END ==
LOC: OD 07:15
PROVIDERS: ATTEND Physician Assistant
DX: Z13.220 Encounter for screening for lipoid disorders (principal); I48.91 Unspecified atrial fibrillation; N18.2 Chronic kidney disease, stage 2 (mild)
CPT/HCPCS: 36415; 80048; 80061; 80076; 83735; 84443; 85027

== ENCOUNTER → 2020-01-21 | Outpatient (CLI) | payer BC ==
[2020-01-21 12:36] LABS: ALBUMIN 4.4 g/dL (3.5-5.0); ALKALINE PHOSPHATASE 131 U/L (38-126); ASPARTATE AMINO TRANSFERASE 56 U/L (17-59); BILIRUBIN,DIRECT 0.2 mg/dL (0.0-0.4); BILIRUBIN,TOTAL 1.6 mg/dL (0.2-1.3); TOTAL PROTEIN 7.9 g/dL (6.3-8.2)
[2020-01-23 14:37] LABS: HEPATITS B SURFACE ANTIGEN Negative (Negative)
[2020-01-23 15:41] LABS: HEPATITIS C VIRUS ANTIBODY <0.1 s/co ratio (0.0-0.9)
== END ==
LOC: OD 10:57
PROVIDERS: ATTEND Physician Assistant
DX: R94.5 Abnormal results of liver function studies (principal)
CPT/HCPCS: 36415; 80074; 80076

== ENCOUNTER → 2020-06-21 | Outpatient (CLI) | payer BC ==
[2020-06-21 15:28] LABS: ALBUMIN 4.4 g/dL (3.5-5.0); ALKALINE PHOSPHATASE 97 U/L (38-126); ANION GAP 7 (5-19); ASPARTATE AMINO TRANSFERASE 48 U/L (17-59); BILIRUBIN,DIRECT 0.2 mg/dL (0.0-0.4); BILIRUBIN,TOTAL 1.3 mg/dL (0.2-1.3); BLOOD UREA NITROGEN 20 mg/dL (7-20); CALCIUM 9.3 mg/dL (8.4-10.2); CARBON DIOXIDE 31 mmol/L (22-30); CHLORIDE 102 mmol/L (98-107); CHOLESTEROL 159.67 mg/dL (0-200); GLUCOSE 84 mg/dL (75-110); POTASSIUM 4.6 mmol/L (3.6-5.0); TOTAL PROTEIN 7.9 g/dL (6.3-8.2); TRIGLYCERIDES 187 mg/dL (<150)
[2020-06-21 15:42] LABS: DIRECT LDL 95 mg/dL (<100)
[2020-06-21 15:47] LABS: VLDL CHOLESTEROL 37.4 mg/dL (10-31)
== END ==
LOC: OD 13:44
PROVIDERS: ATTEND Physician Assistant
DX: E03.9 Hypothyroidism, unspecified (principal); E78.1 Pure hyperglyceridemia; I48.91 Unspecified atrial fibrillation; Z79.899 Other long term (current) drug therapy
CPT/HCPCS: 36415; 80048; 80061; 80076; 83735; 84443

== ENCOUNTER → 2020-07-19 | Outpatient (CLI) | payer BC | LOC: OD 09:36 | PROVIDERS: ATTEND Physician Assistant | DX: E83.42 Hypomagnesemia (principal) | CPT/HCPCS: 36415; 83735 ==